=== PATIENT | female | born 1995 | race Caucasian/White ===

== ENCOUNTER 2017-11-25 09:00 | Emergency (ER) | payer BC, OTHER, SELFPAY ==
[2017-11-25 09:21] VITALS: BMI 32.4
[2017-11-25 09:24] VITALS: BP 116/89; PULSE 106; RESP 20; TEMP 36.6; O2SAT 98; BMI 32.4
--- NOTE | 2017-11-25 09:37 | HMH.EDUTC ---
[facility] [place] Impression: Viral upper respiratory illness Disposition: Home, Self-Care Condition on Discharge: Good Instructions: DI for Viral Upper Respiratory Infection -- Adult Additional Instructions: * No sign of bacterial infection. Likely viral. Virus can take 7-14 days to run their course * Nasal Saline and bulb syringe or nose olga to remove nasal drainage and help with nasal congestion. Hard to eat, drink, sleep with nasal congestion so important to keep nose cleaned out * Monitor Temp. Tylenol every 4 hours as needed no more then 5 times a day or 4000mg in 24 hours and/or ibuprofen every 6 hours as needed no more then 3200mg in 24 hours (as long as your primary care doctor has told you that it is ok to take both) for fever/aches/pain. ER if fever no less than 101 despite tylenol and ibuprofen * Encourage fluids, water, gatorade, powerade, pedialyte if /toddler/child * warm salt water gargles * warm fluids * sore throat lozenges * sleep elevated * humidifier/vaporizer * * Your throat swab was sent for culture. Those results are typically sent to your primary care. Be sure to follow up in 2-3 days if no improvement so they can review those results and treat if necessary. If you don't have primary care, I recommend you get one but in the mean time, you will have to return to a walk in clinic. Referrals: Evelio Smith MD [Primary Care Provider] - (IMMEDIATELY for new or worsening symptoms OR no noticeable improvement over the next 48-72 hours. 911 for difficulty breathing or swallowing.) Time of Disposition: 09:41 Medical Decision Making Vital Signs: 11/25/17 09:24 Temperature 97.9 F Temperature Source Oral Pulse Rate [Right Brachial] 106 H Respiratory Rate 20 Blood Pressure [Right Arm] 116/89 Blood Pressure Mean [Right Arm] 98 Blood Pressure Source [Right Arm] Automatic Cuff Blood Pressure Position [Right Arm] Sitting 02 Sat by Pulse Oximetry 98 Oxygen Delivery Method Room Air - Jaspal Inquiry Pt receiving controlled substance: No [facility] [place] - General Stated complaint: congestion Time Seen by Provider: 11/25/17 09:20 Mode of Arrival: Ambulatory Source of Information: Patient Limitations: No Limitations Description of Symptoms (Recalled from Triage Doc. by RN): sneezing, cough, fever x 3 days HEENT Symptoms (Recalled from RN notes): Yes Resp Symptoms (Recalled from RN notes): Yes Skin Symptoms (Recalled from RN notes): No MS Symptoms (Recalled from RN notes): No Functional Status (Recalled from RN notes): na - History of Present Illness Provider Complaint: c/o nonprod cough, aches, chills, rhinorrhea and nasal congestion x 3 days. Son w/ same symptoms but hasn't been seen. Has not had flu vaccine. Denies fever. Tylenol and dayquil/nyquil help. - Related Data Home Medications Medication Instructions Recorded Confirmed No Known Home Medications [No 11/25/17 11/25/17 Known Home Medications] Allergies Allergy/AdvReac Type Severity Reaction Status Date / Time No Known Allergies Allergy Verified 11/25/17 09:22 - Worker's Comp Is this a Worker's Comp case?: No Is this an [facility] Worker's Comp?: No Is this a [place] Worker's Comp?: No [facility] History I have reviewed the patient's past medical history: Yes (denies pertinent hx) Medical History: Denies:: Diabetes Mellitus Type 2, Hypertension Amputation: No Fractures: No Comment: wisdom teeth extraction - *Social History Smoking Status: Never smoker Alcohol Intake: never - Psychiatric History Expresses thoughts of harming self/others: None Suicide Plan Description: No Plan ROS Obtained: Yes Systems reviewed as appropriate & no additional complaints - Constitutional Reports body ache(s), Reports chills, Reports fatigue, Denies anorexia, Denies fever(s) - Eyes Denies discharge - ENT Reports nasal congestion, Reports nasal discharge, Reports post nasal drip, Reports sinus pressure, Denies abnormal
--- NOTE | 2017-11-25 09:40 | ED_ITS ---
[facility] – [place] Disposition Clinical Impression: Viral upper respiratory illness Disposition: Home, Self-Care Condition on Discharge: Good Instructions: DI for Viral Upper Respiratory Infection -- Adult Additional Instructions: * No sign of bacterial infection. Likely viral. Virus can take 7-14 days to run their course * Nasal Saline and bulb syringe or nose olga to remove nasal drainage and help with nasal congestion. Hard to eat, drink, sleep with nasal congestion so important to keep nose cleaned out * Monitor Temp. Tylenol every 4 hours as needed no more then 5 times a day or 4000mg in 24 hours and/or ibuprofen every 6 hours as needed no more then 3200mg in 24 hours (as long as your primary care doctor has told you that it is ok to take both) for fever/aches/pain. ER if fever no less than 101 despite tylenol and ibuprofen * Encourage fluids, water, gatorade, powerade, pedialyte if infant/toddler/ child * warm salt water gargles * warm fluids * sore throat lozenges * sleep elevated * humidifier/vaporizer * * Your throat swab was sent for culture. Those results are typically sent to your primary care. Be sure to follow up in 2-3 days if no improvement so they can review those results and treat if necessary. If you don't have primary care , I recommend you get one but in the mean time, you will have to return to a walk in clinic. Referrals: Evelio Smith MD [Primary Care Provider] - (IMMEDIATELY for new or worsening symptoms OR no noticeable improvement over the next 48-72 hours. 911 for difficulty breathing or swallowing.) Time of Disposition: 09:41 Medical Decision Making Vital Signs: 11/25/17 09:24 Temperature 97.9 F Temperature Source Oral Pulse Rate [Right Brachial] 106 H Respiratory Rate 20 Blood Pressure [Right Arm] 116/89 Blood Pressure Mean [Right Arm] 98 Blood Pressure Source [Right Arm] Automatic Cuff Blood Pressure Position [Right Arm] Sitting 02 Sat by Pulse Oximetry 98 Oxygen Delivery Method Room Air - Jaspal Inquiry Pt receiving controlled substance: No [facility] [place] HPI - General Stated complaint: congestion Time Seen by Provider: 11/25/17 09:20 Mode of Arrival: Ambulatory Source of Information: Patient Limitations: No Limitations Description of Symptoms (Recalled from Triage Doc. by RN): sneezing, cough, fever x 3 days HEENT Symptoms (Recalled from RN notes): Yes Resp Symptoms (Recalled from RN notes): Yes Skin Symptoms (Recalled from RN notes): No MS Symptoms (Recalled from RN notes): No Functional Status (Recalled from RN notes): na - History of Present Illness Provider Complaint: c/o nonprod cough, aches, chills, rhinorrhea and nasal congestion x 3 days. Son w/ same symptoms but hasn't been seen. Has not had flu vaccine. Denies fever. Tylenol and dayquil/nyquil help. - Related Data Home Medications Medication Instructions Recorded Confirmed No Known Home Medications [No 11/25/17 11/25/17 Known Home Medications] Allergies Allergy/AdvReac Type Severity Reaction Status Date / Time No Known Allergies Allergy Verified 11/25/17 09:22 - Worker's Comp Is this a Worker's Comp case?: No Is this an [facility] Worker's Comp?: No Is this a [place] Worker's Comp?: No [facility] History I have reviewed the patient's past medical history: Yes (denies pertinent hx) Medical History: Denies:: Diabetes Mellitus Type 2, Hypertension Amputation: No
[2017-11-25 09:42] LABS: UTC Influenza A Antigen Negative (Negative); UTC Influenza B Antigen Negative (Negative)
[2017-11-25 09:44] LABS: UTC Strep Screen (Rapid) Negative (Negative)
[2017-11-25 09:48] VITALS: BP 118/68
== END 2017-11-25 09:50 | disposition home or self-care (01) ==
PROVIDERS: Emergency Provider Nurse Practitioner Family; Family Provider Family Medicine; PCP Family Medicine
DX: J06.9 Acute upper respiratory infection, unspecified (principal)
CPT/HCPCS: 87275; 87276; 87430; 87804; 87880; 99201

== ENCOUNTER 2018-02-17 12:33 | Emergency (ER) | payer BC, OTHER, SELFPAY ==
[2018-02-17 12:40] VITALS: BP 131/79; PULSE 109; RESP 20; TEMP 36.9; O2SAT 98; BMI 29.9
--- NOTE | 2018-02-17 12:44 | HMH.EDUTC ---
[facility] [place] Clinical Impression: Viral upper respiratory illness Disposition: Home, Self-Care Condition on Discharge: Good Instructions: DI for Viral Upper Respiratory Infection -- Adult Additional Instructions: * No sign of bacterial infection. Likely viral. Virus can take 7-14 days to run their course * Nasal Saline to remove nasal drainage and help with nasal congestion. Hard to eat, drink, sleep with nasal congestion so important to keep nose cleaned out * Monitor Temp. Follow up if fever develops * Encourage fluids, water, gatorade, powerade, pedialyte if infant/toddler/child * warm salt water gargles * warm fluids * sore throat lozenges * sleep elevated * humidifier/vaporizer Referrals: Evelio Smith MD [Primary Care Provider] - (IMMEDIATELY for new or worsening symptoms OR no noticeable improvement over the next 48-72 hours. 911 for difficulty breathing or swallowing.) Time of Disposition: 12:53 Medical Decision Making - Jaspal Inquiry Pt receiving controlled substance: No Vital Signs: 02/17/18 12:40 Temperature 98.4 F Temperature Source Oral Pulse Rate [Right Brachial] 109 H Respiratory Rate 20 Blood Pressure [Right Arm] 131/79 Blood Pressure Mean [Right Arm] 96 Blood Pressure Source [Right Arm] Automatic Cuff Blood Pressure Position [Right Arm] Sitting 02 Sat by Pulse Oximetry 98 Oxygen Delivery Method Room Air [facility] [place]PI - General Stated complaint: congested Time Seen by Provider: 02/17/18 12:45 Mode of Arrival: Family Vehicle Source of Information: Patient Limitations: No Limitations Description of Symptoms (Recalled from Triage Doc. by RN): C/O CONGESTION AND COUGH X 2 DAYS HEENT Symptoms (Recalled from RN notes): Yes Resp Symptoms (Recalled from RN notes): Yes Skin Symptoms (Recalled from RN notes): No MS Symptoms (Recalled from RN notes): No Functional Status (Recalled from RN notes): N/A - History of Present Illness Provider Complaint: c/o nonprod cough, nasal congestion, sore throat since day before yesterday. Son with same symptoms. Dx URI and OM. Hasn't taken or tried anything for symptoms. I don't like to take medication . No fever, aches, chills. Here only because mom is getting chemo. I just want to be sure I don't need antibiotics - Related Data Home Medications Medication Instructions Recorded Confirmed No Known Home Medications [No 11/25/17 02/17/18 Known Home Medications] Allergies Allergy/AdvReac Type Severity Reaction Status Date / Time No Known Allergies Allergy Verified 11/25/17 09:22 - Worker's Comp Is this a Worker's Comp case?: No [facility] History I have reviewed the patient's past medical history: Yes Medical History: Denies:: Diabetes Mellitus Type 1, Diabetes Mellitus Type 2, Hypertension Other Surgeries: Yes: Other (wisdom teeth extraction) Amputation: No Fractures: No Comment: wisdom teeth extraction - Social History Smoking Status: Never smoker Alcohol Intake: never - Psychiatric History Expresses thoughts of harming self/others: None Suicide Plan Description: No Plan ROS Obtained: Yes Systems reviewed as appropriate & no additional complaints - Constitutional Constitutional: Reports as per HPI, Denies difficulty sleeping, Denies fatigue, Denies poor appetite - Eyes Eyes: Denies eye discharge, Denies itchy eyes - ENT Ears, Nose, Mouth, and Throat: Denies difficulty swallowing, Denies ear discharge, Reports otalgia (popping), Reports nasal congestion, Reports nasal discharge, Denies pain with swallowing, Reports post nasal drip, Denies sinus pain, Reports sore throat, Denies throat swelling - Cardiovascular Cardiovascular: Denies chest pain, Denies irregular heart rhythm - Respiratory Respiratory: No chest congestion, Yes non-productive cough, No dyspnea, No wheezing - Gastrointestinal Gastrointestingal: Denies: diarrhea, vomiting - Integumentary/Breasts Skin/Breast: Denies rash - Neurologic Neurologic:
--- NOTE | 2018-02-17 12:51 | ED_ITS ---
[facility] – [place] Disposition Clinical Impression: Viral upper respiratory illness Disposition: Home, Self-Care Condition on Discharge: Good Instructions: DI for Viral Upper Respiratory Infection -- Adult Additional Instructions: * No sign of bacterial infection. Likely viral. Virus can take 7-14 days to run their course * Nasal Saline to remove nasal drainage and help with nasal congestion. Hard to eat, drink, sleep with nasal congestion so important to keep nose cleaned out * Monitor Temp. Follow up if fever develops * Encourage fluids, water, gatorade, powerade, pedialyte if infant/toddler/ child * warm salt water gargles * warm fluids * sore throat lozenges * sleep elevated * humidifier/vaporizer Referrals: Evelio Smith MD [Primary Care Provider] - (IMMEDIATELY for new or worsening symptoms OR no noticeable improvement over the next 48-72 hours. 911 for difficulty breathing or swallowing.) Time of Disposition: 12:53 Medical Decision Making - Jaspal Inquiry Pt receiving controlled substance: No Vital Signs: 02/17/18 12:40 Temperature 98.4 F Temperature Source Oral Pulse Rate [Right Brachial] 109 H Respiratory Rate 20 Blood Pressure [Right Arm] 131/79 Blood Pressure Mean [Right Arm] 96 Blood Pressure Source [Right Arm] Automatic Cuff Blood Pressure Position [Right Arm] Sitting 02 Sat by Pulse Oximetry 98 Oxygen Delivery Method Room Air [facility] [place] HPI - General Stated complaint: congested Time Seen by Provider: 02/17/18 12:45 Mode of Arrival: Family Vehicle Source of Information: Patient Limitations: No Limitations Description of Symptoms (Recalled from Triage Doc. by RN): C/O CONGESTION AND COUGH X 2 DAYS HEENT Symptoms (Recalled from RN notes): Yes Resp Symptoms (Recalled from RN notes): Yes Skin Symptoms (Recalled from RN notes): No MS Symptoms (Recalled from RN notes): No Functional Status (Recalled from RN notes): N/A - History of Present Illness Provider Complaint: c/o nonprod cough, nasal congestion, sore throat since day before yesterday. Son with same symptoms. Dx URI and OM. Hasn't taken or tried anything for symptoms. I don't like to take medication . No fever, aches, chills. Here only because mom is getting chemo. I just want to be sure I don't need antibiotics - Related Data Home Medications Medication Instructions Recorded Confirmed No Known Home Medications [No 11/25/17 02/17/18 Known Home Medications] Allergies Allergy/AdvReac Type Severity Reaction Status Date / Time No Known Allergies Allergy Verified 11/25/17 09:22 - Worker's Comp Is this a Worker's Comp case?: No [facility] History I have reviewed the patient's past medical history: Yes Medical History: Denies:: Diabetes Mellitus Type 1, Diabetes Mellitus Type 2, Hypertension Other Surgeries: Yes: Other (wisdom teeth extraction) Amputation: No Fractures: No Comment: wisdom teeth extraction - Social History Smoking Status: Never smoker Alcohol Intake: never - Psychiatric History Expresses thoughts of harming self/others: None Suicide Plan Description: No Plan ROS Obtained: Yes Systems reviewed as appropriate & no additional complaints - Constitutional Constitutional: Reports as per HPI, Denies difficulty sleeping, Denies fatigue, Denies poor appetite - Eyes Eyes: Denies eye discharge, Denies itchy eyes - ENT Ears,
[2018-02-17 13:02] VITALS: BP 130/72; PULSE 105; RESP 20; TEMP 36.9; O2SAT 99
== END 2018-02-17 13:02 | disposition home or self-care (01) ==
PROVIDERS: Emergency Provider Nurse Practitioner Family; Family Provider Family Medicine; PCP Family Medicine
DX: J06.9 Acute upper respiratory infection, unspecified (principal)
CPT/HCPCS: 99201

== ENCOUNTER → 2018-09-26 14:41 | Outpatient (CLI) | payer OTHER, SELFPAY ==
--- NOTE | 2018-09-26 14:42 | US_ITS ---
US transvaginal HISTORY: Pelvic pain, abnormal cycles ITS.REASON: US T/V- Pelvic Pain ORDERING PHYSICIAN: Liu Rod MD PATIENT AGE: 23 years Comparison: None FINDINGS: Uterus is anteverted measuring 6 x 3.4 x 4.3 cm with a combined endometrial thickness of 4 mm. No uterine mass. The right ovary is 2.8 x 2.8 cm with small follicles. Blood flow is present. The left ovary is 2.3 x 1.6 cm with small follicles. Blood flow is present. No dominant cyst evident. No cul-de-sac fluid. IMPRESSION: Unremarkable pelvic ultrasound
== END ==
PROVIDERS: PCP Family Medicine; Visit Provider Nurse Practitioner Obstetrics & Gynecology
DX: R10.2 Pelvic and perineal pain (principal)
CPT/HCPCS: 76830

== ENCOUNTER → 2019-09-04 13:08 | Outpatient (CLI) | payer OTHER, SELFPAY ==
--- NOTE | 2019-09-04 13:10 | US_ITS ---
PROCEDURE: US OB TRANSVAGINAL CLINICAL INDICATION: US OB Dates COMPARISON: TRANVAG US transvaginal from 09/26/2018 FINDINGS: An intrauterine gestational sac is present with a pole with a crown-rump length of 17.7 mm correlating to gestational age of 8 weeks 2 days. heart tones are present with an FHR of 161 bpm. Yolk sac is noted. Adnexa is unremarkable. IMPRESSION: Live intrauterine gestation in 8 weeks 2 days Estimated due date by Ultrasound is 04/13/2020 Dictated by: Jim Woodall MD 09/04/2019 15:52 Electronically signed by Jim Woodall MD in [place] 09/04/2019 15:52
[2019-09-04 14:48] LABS: Basophils % 0.3 % (0.1-2.0); Eosinophils # 0.2 K/mm3 (0.0-0.4); Eosinophils % 1.4 % (0.1-12.0); Hematocrit 44.6 % (37.0-47.0); Hemoglobin 14.2 g/dL (12.2-16.2); Lymphocytes # 2.2 K/mm3 (0.7-4.5); Lymphocytes % 17.7 % (10-50); Mean Corpuscular HGB Conc 31.8 g/dL (31.8-35.4); Mean Corpuscular Hemoglobin 28.7 pg (27.0-31.2); Mean Corpuscular Volume 90.3 fl (81-99); Mean Platelet Volume 7.3 fl (7.4-10.4); Monocytes # 0.5 K/mm3 (0.1-1.0); Monocytes % 3.7 % (1.7-9.3); Neutrophils # 9.7 K/mm3 (1.8-7.8); Neutrophils % 76.8 % (37.0-80.0); Platelet Count 270 K/mm3 (142-424); Red Blood Count 4.94 M/mm3 (4.20-5.40); Red Cell Distribution Width 13.1 % (11.5-17.5); White Blood Count 12.7 K/mm3 (4.8-10.8)
[2019-09-07 07:22] LABS: Hepatitis B Surface Antigen Negative (Negative); Hepatitis C Antibody 0.1 s/co ratio (0.0-0.9); Rapid Plasma Reagin Ab Titer Non Reactive (NonRea<1:1)
[2019-09-07 07:23] LABS: HIV Screen 4th Generation wRfx Non Reactive (Non Reactive)
[2019-09-07 14:30] LABS: Rubella Antibodies, IgG 1.16 index (Immune >0.99)
== END ==
PROVIDERS: PCP Family Medicine; Visit Provider Nurse Practitioner Obstetrics & Gynecology
DX: O26.841 Uterine size-date discrepancy, first trimester (principal)
CPT/HCPCS: 36415; 76817; 85025; 86592; 86703; 86762; 86850; 87340; 87380; G0432

== ENCOUNTER → 2019-09-04 13:46 | Outpatient (CLI) | payer OTHER, SELFPAY | PROVIDERS: Visit Provider Nurse Practitioner Obstetrics & Gynecology | DX: Z34.90 Encounter for supervision of normal pregnancy, unspecified, unspecified trimester (principal) | CPT/HCPCS: 36415; 85025; 86592; 86703; 86762; 86850; 87340; 87380; G0432 ==

== ENCOUNTER → 2019-11-24 12:34 | Outpatient (CLI) | payer OTHER, SELFPAY ==
--- NOTE | 2019-11-24 12:34 | US_ITS ---
PROCEDURE: US OB /MATERNAL DETAIL CLINICAL INDICATION: US OB Complete Anatomy exam COMPARISON: US OB TRANSVAGINAL from 09/04/2019 FINDINGS: Single viable intrauterine gestation. Transverse position. Placenta: Posteriorplacenta grade 1. There is average amount fluid. The cervix appears satisfactory. Closed and measuring 4 cm in length. Complete survey performed and was unremarkable on the submitted images as in PACS. No discrete anomalies identified on survey imaging by technologist. Active fetus. Two vessel cord with satisfactory umbilical cord insertion. 4- chamber heart noted. Survey of brain & ventricles Unremarkable. Face and neck survey unremarkable. Diaphragm and chest views unremarkable. Abdomen: Both kidneys noted and unremarkable. Stomach noted and satisfactory. Spine: Survey of the spine satisfactory with no anomalies identified nor imaged. Both arms and legs noted. Amniotic Fluid: Adequate. Maternal adnexa: No significant findings. Measurements: Average ultrasound age 19weeks 5days. Gestational Age 19 weeks 6 days Estimated due date by ultrasound age 0504/14/2020. Estimated weight 316g BPD = 19weeks 6days OFD = 19 weeks 6 days HC = 19weeks 1day AC = 20weeks FL = 19weeks 6days Growth Percentile= 44 percent% Heart Rate = 144bpm Cerebellum = 19weeks 6days Humerus = HC/AC is 1.11 CI is 0.79 FL/BPD is 0.7 FL/AC is 0.22 IMPRESSION: There is a single live fetus present with an average ultrasound age of 19 weeks 5 days. There is a single umbilical artery with 2 vessel cord. No other abnormalities are evident. All parameters correlate. Please see above for detail. Dictated by: Jim Woodall MD 11/24/2019 15:46 Electronically signed by Jim Woodall MD in [place] 11/24/2019 15:46
== END ==
PROVIDERS: PCP Family Medicine; Visit Provider Nurse Practitioner Obstetrics & Gynecology
DX: Z36.0 Encounter for antenatal screening for chromosomal anomalies (principal)
CPT/HCPCS: 76811

== ENCOUNTER → 2020-02-23 14:02 | Outpatient (CLI) | payer OTHER, SELFPAY ==
--- NOTE | 2020-02-23 14:02 | US_ITS ---
PROCEDURE: US OB BIOPHYSICAL PROFILE CLINICAL INDICATION: 2 vessel cord TECHNIQUE: FINDINGS: The following parameters are obtained: Average ultrasound age is Average 32weeks 2days Estimated due date by ultrasound is 04/17/2020. Estimated weight is 1,984g. This is 29th percentile. Cervix is closed and measures 3.9 cm. The placenta is posterior and high and grade 2. Two vessel cord once again noted. BPD: 31 weeks 4 days OFD: 31 weeks 4 days HC: 31 weeks 3 days AC: 32 weeks 6 FL: 32 weeks 6 days heart rate: 155bpm bpm. HC/AC: 0.99 Cephalic index: 0.77 FL/BPD: 0.81 FL/AC: 0.22 Amniotic fluid index: 12.14cm Qualitative AFV: 2 breathing movements: 2 Gross body movements: 2 Tone: 2 Biophysical profile score: 8 IMPRESSION: There is a single live fetus in cephalic presentation. Average ultrasound age is 32 weeks 2 days. Estimated weight is 1984 g which is 29th percentile Biophysical profile is 8 of 8 with normal amniotic fluid volume of 12 cm. Placenta is posterior and in implantation. There is a 2 vessel cord. Dictated by: Jim Woodall MD 02/23/2020 15:34 Electronically signed by Jim Woodall MD in [place] 02/23/2020 15:34
== END ==
PROVIDERS: PCP Family Medicine; Visit Provider Nurse Practitioner Obstetrics & Gynecology
DX: Z36.0 Encounter for antenatal screening for chromosomal anomalies (principal)
CPT/HCPCS: 76816; 76819

== ENCOUNTER → 2020-03-22 10:16 | Outpatient (CLI) | payer OTHER, SELFPAY ==
[2020-03-22 11:08] LABS: Basophils # 0.1 K/mm3 (0-0.2); Basophils % 0.4 % (0.1-2.0); Eosinophils # 0.2 K/mm3 (0.0-0.4); Eosinophils % 1.4 % (0.1-12.0); Hematocrit 33.2 % (37.0-47.0); Lymphocytes # 2.3 K/mm3 (0.7-4.5); Lymphocytes % 17.9 % (10-50); Mean Corpuscular HGB Conc 33.2 g/dL (31.8-35.4); Mean Corpuscular Hemoglobin 26.9 pg (27.0-31.2); Mean Platelet Volume 7.8 fl (7.4-10.4); Monocytes # 0.8 K/mm3 (0.1-1.0); Monocytes % 5.8 % (1.7-9.3); Neutrophils # 9.6 K/mm3 (1.8-7.8); Neutrophils % 74.6 % (37.0-80.0); Platelet Count 226 K/mm3 (142-424); Red Cell Distribution Width 14.5 % (11.5-17.5); White Blood Count 12.9 K/mm3 (4.8-10.8)
[2020-03-22 11:29] LABS: Chloride 104 mmol/L (98-107); Sodium 135 mmol/L (136-145)
[2020-03-22 11:30] LABS: Potassium 3.9 mmoL/L (3.5-5.1)
[2020-03-22 11:32] LABS: Alanine Aminotransferase 14 U/L (12-78); Albumin Level 3.5 g/dl (3.5-5.0); Albumin/Globulin Ratio 1.1 (1.1-1.8); Alkaline Phosphatase 200 U/L (38-126); Anion Gap 15.9 mEq/L (5-15); Aspartate Amino Transferase 18 U/L (14-36); Bilirubin,Total 0.3 mg/dl (0.2-1.3); Blood Urea Nitrogen 9 mg/dl (7-17); Carbon Dioxide 19 mmol/L (22.0-30.0); Estimated Glomerular Filt Rate 196 ml/min (>60); GFR (African American) 237 ML/MIN (>60); Globulin 3.2 g/dL (1.3-3.2); Total Protein,Serum 6.7 g/dl (6.3-8.2); Uric Acid 3.1 mg/dl (2.5-6.2)
[2020-03-22 11:33] LABS: Calcium 9.7 mg/dl (8.4-10.2); Glucose 126 mg/dl (74-100)
== END ==
PROVIDERS: Visit Provider Nurse Practitioner Obstetrics & Gynecology
DX: O13.9 Gestational [pregnancy-induced] hypertension without significant proteinuria, unspecified trimester (principal)
CPT/HCPCS: 36415; 80053; 84550; 85025; 86403

== ENCOUNTER 2020-04-04 01:37 | Outpatient (CLI) | payer OTHER, SELFPAY ==
[2020-04-04 01:42] VITALS: BMI 39.0
[2020-04-04 01:52] LABS: Microscopic, Urine URINE MICROSCOPIC (MICROSCOPIC)
[2020-04-04 02:00] LABS: Appearance,Urine SL CLOUDY (Clear); Bilirubin,Urine Negative (Negative); Blood, Urine Negative (Negative); Color,Urine YELLOW (Yellow); Glucose,Urine (UA) TRACE (Negative); Ketones,Urine Negative (Negative); Leukocyte Esterase,Urine Negative (Negative); Nitrate,Urine Negative (Negative); Protein,Urine TRACE (Negative); Specific Gravity, Urine >= 1.030 (1.005-1.030); Urobilinogen,Urine 0.2 EU/dl (0.2)
[2020-04-04 02:10] LABS: Squamous Epithelial Cell,Urine 20-50 #/hpf (0-5); WBC,Urine Occasional #/hpf (0-3)
[2020-04-04 02:11] VITALS: BP 163/79; PULSE 109; RESP 22; TEMP 37.1; BMI 39.0
[2020-04-04 02:11] LABS: Barbiturates Screen,Urine Negative ng/ml (<200)
[2020-04-04 02:12] LABS: Amphetamine/Metha Screen,Urine Negative ng/ml (<1000); Benzodiazepines Screen,Urine Negative ng/ml (<200)
[2020-04-04 02:20] LABS: Cannabinoid Screen,Urine Negative ng/ml (<50)
[2020-04-04 02:21] LABS: Cocaine Screen,Urine Negative ng/ml (<300)
[2020-04-04 02:22] LABS: Methadone Screen,Urine Negative ng/ml (<300)
[2020-04-04 02:24] LABS: Opiate Screen,Urine Negative ng/ml (<300)
[2020-04-04 02:25] LABS: Phencyclidine Screen,Urine Negative ng/ml (<25)
== END 2020-04-04 03:11 | disposition home or self-care (01) ==
LOC: OBOUT 01:40 → OB 01:40
PROVIDERS: PCP Family Medicine; Visit Provider Obstetrics & Gynecology
DX: O26.893 Other specified pregnancy related conditions, third trimester (principal); Z3A.38 38 weeks gestation of pregnancy; R10.31 Right lower quadrant pain
CPT/HCPCS: 59025; 80305; 81001; G0463

== ENCOUNTER 2020-04-13 05:01 | Inpatient (IN) | payer OTHER, SELFPAY ==
[2020-04-13 05:26] VITALS: BP 144/73; PULSE 110; RESP 18; TEMP 36.6; O2SAT 96
[2020-04-13 05:47] VITALS: BP 144/73; PULSE 110; RESP 18; TEMP 36.6; O2SAT 96
[2020-04-13 06:16] LABS: Microscopic, Urine URINE MICROSCOPIC (MICROSCOPIC)
[2020-04-13 06:20] LABS: Appearance,Urine CLOUDY (Clear); Bilirubin,Urine Negative (Negative); Blood, Urine Negative (Negative); Color,Urine DK YELLOW (Yellow); Glucose,Urine (UA) Negative (Negative); Ketones,Urine TRACE (Negative); Leukocyte Esterase,Urine 1+ (Negative); Nitrate,Urine Negative (Negative); Protein,Urine TRACE (Negative); Specific Gravity, Urine >= 1.030 (1.005-1.030); Urobilinogen,Urine 0.2 EU/dl (0.2)
[2020-04-13 06:20] LABS: Basophils % 0.3 % (0.1-2.0); Eosinophils # 0.2 K/mm3 (0.0-0.4); Eosinophils % 1.3 % (0.1-12.0); Hematocrit 35.5 % (37.0-47.0); Hemoglobin 11.7 g/dL (12.2-16.2); Lymphocytes # 2.9 K/mm3 (0.7-4.5); Lymphocytes % 19.6 % (10-50); Mean Corpuscular HGB Conc 33.1 g/dL (31.8-35.4); Mean Corpuscular Hemoglobin 27.9 pg (27.0-31.2); Mean Corpuscular Volume 84.3 fl (81-99); Mean Platelet Volume 7.8 fl (7.4-10.4); Monocytes # 0.8 K/mm3 (0.1-1.0); Monocytes % 5.7 % (1.7-9.3); Neutrophils # 10.7 K/mm3 (1.8-7.8); Neutrophils % 73.1 % (37.0-80.0); Platelet Count 216 K/mm3 (142-424); Red Blood Count 4.21 M/mm3 (4.20-5.40); Red Cell Distribution Width 17.3 % (11.5-17.5); White Blood Count 14.6 K/mm3 (4.8-10.8)
[2020-04-13 06:33] LABS: Barbiturates Screen,Urine Negative ng/ml (<200); Benzodiazepines Screen,Urine Negative ng/ml (<200)
[2020-04-13 06:34] LABS: Amphetamine/Metha Screen,Urine Negative ng/ml (<1000); Cannabinoid Screen,Urine Negative ng/ml (<50)
[2020-04-13 06:35] LABS: Cocaine Screen,Urine Negative ng/ml (<300)
[2020-04-13 06:36] LABS: Methadone Screen,Urine Negative ng/ml (<300); Opiate Screen,Urine Negative ng/ml (<300)
[2020-04-13 06:37] LABS: Phencyclidine Screen,Urine Negative ng/ml (<25)
[2020-04-13 06:43] LABS: Bacteria,Urine 2+ /lpf; Squamous Epithelial Cell,Urine 20-50 #/hpf (0-5); WBC,Urine 20-50 #/hpf (0-3)
[2020-04-13 06:53] LABS: Coronavirus 19 IgG Antibody Negative (Negative); Coronavirus 19 IgM Antibody Negative (Negative)
[2020-04-13 07:12] VITALS: BP 143/79; PULSE 90; RESP 18; TEMP 36.7; O2SAT 98
--- NOTE | 2020-04-13 08:52 | HMH.LABNOT ---
Labor Note - Subjective: Date: 04/13/20 Time: 08:52 regular contraction - Objective: NST:: Reactive Contractions:: every 2-3 minutes Cervical Dilation:: 4 Effacement:: 75% Station: -2 Membranes: artificially ruptured - Fetus: Monitoring?: Yes monitoring type:: Internal Comment:: I inserted a scalp clip and IUPC - Assessment: Labor progressing?: Yes Cephalopelvic disproportion?: No Patient Problems: All Active Problems (Acute) - Plan: Anesthesia for epidural?: Yes Continue to labor down?: Yes Plan for ?: No Continue to monitor?: Yes Start pushing?: No
--- NOTE | 2020-04-13 08:56 | HMH.OBAPHP ---
OB - H&P: HPI Antepartum - History of Present Illness Chief complaint: Term History of present illness: She is a 24-year-old 2 para 1 at 39 and 4 weeks gestational age. She has felt lots of pressure and as result of that we elected to induce her labor at term. She had a previous baby that was almost 8 pounds. She also had some episodes of increased blood pressure. She has been on prophylactic aspirin throughout the . - History of Present Criteria for establishing EDC:: LMP confirmed by 1st trimester US care: good care Ultrasounds: normal 1st trimester US, normal mid trimester US Obstetrical complications: none, gestational hypertension Medical complications: other Narrative: She is morbidly obese - Labs Blood type: O (+) positive Rubella: immune RPR/VDRL: nonreactive GBS status: negative HBsAG: negative [facility] History I have reviewed the patient's past medical history: Yes Medical History: Reports:: Anxiety Denies:: Cancer, Diabetes Mellitus Type 1, Diabetes Mellitus Type 2, Hypertension, MRSA *Have you ever received a pneumonia vaccine?: No *Have you received a flu vaccine this season?: No Laterality Cases: Bilateral: Myringotomy (Ear Tubes) Other Surgeries: Yes: No Previous Surgery, Other. No: Amputation: No Fractures: No - *Social History Smoking Status: Former smoker Tobacco Type: cigarettes # Packs/Day (cigarettes): 1 Alcohol Intake: never Substance Use Type: marijuana *Occupational Status:: unemployed Housing: house Household Members: family *Travel in the last 8 weeks: None - Psychiatric History Pschychiatric History:: Reports:: Anxiety Family Hx:: Cancer Para: 1 Review of Systems - Review of Systems Review of systems:: pertinent systems reviewed and negative unless documented below Meds Home Medications Medication Instructions Recorded Confirmed Type PNV 153-FA 400 mcg-om3 35 mg-dha 1 tab PO DAILY tab 08/25/19 04/13/20 History 25 mg-epa 5 mg-fish oil chew tablet Ferrous Sulfate 325 mg PO DAILY 04/13/20 04/13/20 History Allergies Allergy/AdvReac Type Severity Reaction Status Date / Time No Known Allergies Allergy Verified 04/13/20 06:46 OB - H&P: Exam - Physical Exam Vital signs: Temp Pulse Resp BP Pulse Ox 98.0 F 90 18 143/79 H 98 04/13/20 07:12 04/13/20 07:12 04/13/20 07:12 04/13/20 07:12 04/13/20 07:12 - Constitutional no acute distress - Routine HEENT Exam Head: Present: normocephalic Eye: Present: EOMI, PERRL ENT: Present: mucous membranes moist - Routine Neck Exam Present: supple, full ROM - Routine Respiratory Exam Absent: accessory muscle use (good air entry bilaterally), respiratory distress, wheezes, crackles - Routine Cardiovascular Exam Present: RRR. Absent: murmur - Routine Abdominal Exam Present: soft, normoactive bowel sounds. Absent: tenderness, distended, guarding - Routine Rectal Exam Patient deferred: visual exam, digital exam - Routine Exam Patient deferred: external exam, groin exam, perineal exam - Routine Extremities Exam Present: full ROM. Absent: cyanosis, edema - Routine Skin Exam Present: intact. Absent: cyanosis - Routine Neurological Exam Present: alert, oriented X3 - Routine Psychiatric Exam Present: normal affect OB - Results - Labs Labs: Short CBC 04/13/20 Range/Units 05:35 WBC 14.6 H (4.8-10.8) K/mm3 Hgb 11.7 L (12.2-16.2) g/dL Hct 35.5 L (37.0-47.0) % Plt Count 216 (142-424) K/mm3 Urine 04/13/20 Range/Units 05:15 Urine Color Dk yellow (Yellow) Urine Appearance Cloudy (Clear) Urine pH 6.0 (5.0-8.5) Ur Specific [place] >= 1.030 (1.005-1.030) Urine Protein Trace (Negative) Urine Glucose (UA) Negative (Negative) OB - A/P Antepartum (1) Gestational hypertension Current visit: Yes Status: Acute (2) Maternal obesity affecting , ant
--- NOTE | 2020-04-13 10:55 | HMH.LABNOT ---
Labor Note - Subjective: Date: 04/13/20 Time: 10:55 regular contraction - Objective: NST:: Reactive Contractions:: every 2-3 minutes Cervical Dilation:: 5 Effacement:: 100% Station: 0 Membranes: artificially ruptured - Fetus: Monitoring?: Yes monitoring type:: Internal - Assessment: Labor progressing?: Yes Cephalopelvic disproportion?: No Patient Problems: All Active Problems Gestational hypertension (Acute) Maternal obesity affecting , antepartum (Acute) Normal delivery (Acute) (Acute) - Plan: Anesthesia for epidural?: Yes Continue to labor down?: Yes Plan for ?: No Continue to monitor?: Yes Start pushing?: No Comment:: She continues to do well. Her nonstress test is reactive. She is now 5 cm.
[2020-04-13 11:54] VITALS: BP 121/57; PULSE 82; RESP 18; TEMP 36.9
--- NOTE | 2020-04-13 13:36 | HMH.LABNOT ---
Labor Note - Subjective: Date: 04/13/20 Time: 13:36 regular contraction - Objective: NST:: Reactive Contractions:: every 2-3 minutes Cervical Dilation:: 9-10 Effacement:: 100% Station: +1 Membranes: artificially ruptured - Fetus: Monitoring?: Yes monitoring type:: Internal - Assessment: Labor progressing?: Yes Cephalopelvic disproportion?: No Patient Problems: All Active Problems Gestational hypertension (Acute) Maternal obesity affecting , antepartum (Acute) Normal delivery (Acute) (Acute) - Plan: Anesthesia for epidural?: Yes Continue to labor down?: Yes Plan for ?: No Continue to monitor?: Yes Start pushing?: No Comment:: She is doing well and is now fully dilated. The head is still somewhat high. We will allow the head to come down a little more before we start pushing.
[2020-04-13 15:00] LABS: Cord Blood PH 7.16 (7.35-7.45)
[2020-04-13 16:30] VITALS: BP 124/63; PULSE 87; RESP 20; TEMP 36.6
--- NOTE | 2020-04-13 16:37 | P.PCN_ITS ---
- Delivery Note Delivery Date:: 04/13/20 Delivery Time:: 14:26 Anesthesia Type: Epidural Was labor medically induced?: Yes Induction method: per pitocin protocol Gestational age (weeks): 39 Infant delivered prior to 39 weeks?: No Justification for early elective delivery:: Benign Hypertension Gender: Male at 1 minute: 3 at 5 minutes: 9 Delivery Procedure:: She is a 24-year-old 2 para 1 who was 39 weeks gestational age. She has had some benign hypertension and maternal obesity. As result of that we elected to induce her labor at term. She was started on IV oxytocin and progressed to full dilation. She delivered spontaneously a liveborn male child at 2:26 PM on the afternoon of April 13, 2020. On deliver the head it was noted that the shoulders were large and as a result of that I put her in Demetria and applied pressure to her hips. I did not use excessive force on the head and had the nurse apply suprapubic pressure. It took about 1 minute to deliver the baby's anterior shoulder followed by the rest of his body atraumatically. On deliver the head it was noted that there was a loose nuchal cord which was easily reduced. After delivering the baby the cord was doubly clamped and cut and the infant was handed off to the nurses who assigned Apgars of 3 at 1 minute and 9 at 5 minutes. The baby weighed 8 pounds 9 ounces. The baby required positive pressure ventilation but recovered quite quickly. On examination of the baby it seemed that both arms were moving well. I then obtained cord blood as well as cord pH. The patient received IV oxytocin using gentle traction on the cord and countertraction on the fundus I was able to easily deliver the placenta intact. Had a normal three-vessel cord. She has second-degree perineal laceration that was repaired in the usual fashion with 3- 0 Vicryl Rapide suture to the superficial tissues and 2-0 Vicryl suture to the deep tissues of the perineum. She has O Rh+ blood, she is rubella immune and was group B streptococcus negative. Her assistant professor nurse education is Dr. Smith. Estimated blood loss was approximately 300 cc. Laceration:: vaginal Placental Delivery Description: Spontaneous
--- NOTE | 2020-04-13 17:02 | P.PN_ITS ---
Internal Medicine - PN: Gloria *Date: 04/13/20 *Time: 17:02 Interval history: She was having some increased ooze and did receive 1 dose of Methergine. She has been receiving IV oxytocin. Exam Vital signs and Labs for Last 24 Hours: Temp Pulse Resp BP Pulse Ox 98.4 F 82 18 121/57 L 98 04/13/20 11:54 04/13/20 11:54 04/13/20 11:54 04/13/20 11:54 04/13/20 07:12 Laboratory Results - last 24 hr 04/13/20 05:15: Urine Color Dk yellow, Urine Appearance Cloudy, Urine pH 6.0, Ur Specific Harriman >= 1.030, Urine Protein Trace, Urine Glucose (UA) Negative, Urine Ketones Trace, Urine Blood Negative, Urine Nitrate Negative, Urine Bilirubin Negative, Urine Urobilinogen 0.2, Ur Leukocyte Esterase 1+ A, Urine RBC 5-10, Urine WBC 20-50, Ur Squamous Epith Cells 20-50, Urine Bacteria 2+ 04/13/20 05:15: Urine Opiates Screen Negative, Urine Methadone Screen Negative, Ur Barbituates Screen Negative, Ur Phencyclidine Scrn Negative, Ur Amphetamines Screen Negative, U Benzodiazepines Scrn Negative, Urine Cocaine Screen Negative, U Marijuana (THC) Screen Negative 04/13/20 05:35: WBC 14.6 H, RBC 4.21, Hgb 11.7 L, Hct 35.5 L, MCV 84.3, MCH 27.9, MCHC 33.1, RDW 17.3, Plt Count 216, MPV 7.8, Neut % (Auto) 73.1, Lymph % (Auto) 19.6, Lipscomb % (Auto) 5.7, Eos % (Auto) 1.3, Baso % (Auto) 0.3, Neut # (Auto) 10.7 H, Lymph # (Auto) 2.9, Lipscomb # (Auto) 0.8, Eos # (Auto) 0.2, Baso # (Auto) 0.0 04/13/20 05:35: Blood Type O Positive, Antibody Screen Negative 04/13/20 05:35: SARS-CoV-2 IgG Ab (Rapid) Negative, SARS-CoV-2 IgM Ab (Rapid) Negative 04/13/20 14:57: Cord ABG pH 7.16 L* I & O for Last 24 hours: Intake & Output 04/11/20 04/12/20 04/13/20 04/14/20 11:59 11:59 11:59 11:59 Weight 243 lb - Constitutional no acute distress Assessment and Plan (1) Gestational hypertension Current visit: Yes Status: Acute Category: Medical Code(s): O13.9 - Gestational [-induced] hypertension without significant proteinuria, unspecified trimester (2) Maternal obesity affecting , antepartum Current visit: Yes Status: Acute Category: Medical Code(s): O99.210 - Obesity complicating , unspecified trimester (3) Normal delivery Current visit: Yes Status: Acute Category: Medical Code(s): O80 - Encounter for full-term uncomplicated delivery (4) hemorrhage Current visit: Yes Status: Acute Category: Medical Code(s): O72.1 - Other immediate hemorrhage - Assessment and plan all Dx Assessment and Plan for all problems:: She had increased bleeding and had lost about 300 cc since delivery. I examined her and the uterus was full of clots. I retrieved about 750 cc of clots. These were weighed. After removing the clots from the uterus the uterus was firm and there were no other clots within the uterus. We will give her another dose of Methergine at the 6-hour viviana and we will continue with the IV oxytocin overnight. We will get an H&H right now and there is another one ordered for the morning. We will continue to monitor her blood loss closely.
[2020-04-13 18:25] LABS: Hematocrit 32.3 % (37.0-47.0); Hemoglobin 10.6 g/dL (12.2-16.2)
[2020-04-13 20:00] VITALS: BP 122/63; PULSE 99; RESP 18; TEMP 36.8; O2SAT 97
[2020-04-14 00:15] VITALS: BP 134/69; PULSE 97; RESP 18; TEMP 36.8
[2020-04-14 05:18] LABS: Hematocrit 29.8 % (37.0-47.0); Hemoglobin 9.7 g/dL (12.2-16.2)
[2020-04-14 08:00] VITALS: BP 134/75; PULSE 113; RESP 18; TEMP 36.8; O2SAT 96
[2020-04-14 12:00] VITALS: BP 134/62; PULSE 93; RESP 18; TEMP 37.1; O2SAT 98
[2020-04-14 16:00] VITALS: BP 131/62; PULSE 94; RESP 18; TEMP 36.6; O2SAT 98
[2020-04-14 20:00] VITALS: BP 126/67; PULSE 100; RESP 18; TEMP 36.8
--- NOTE | 2020-04-15 09:04 | P.DS_ITS ---
General - General Admission date:: 04/13/20 Discharge date: 04/15/20 HPI HPI: She is a 24-year-old 3 para 2 who was 39 weeks gestational age. She had some slight increase in her blood pressure and as result of that we elected to induce her at term. Hospital Course Hospital Course: She was started on IV oxytocin had her membranes ruptured. Under labor epidural she progressed to full dilation and delivered spontaneously a liveborn male child at 2:26 PM in the afternoon of April 13, 2020. She had mild shoulder dystocia and as result of that Demetria as well as suprapubic pressure was used to dislodge the anterior shoulder. This allowed the baby to deliver easily. Subsequently the baby has had an x-ray that shows that has a fractured right clavicle. We are just binding the baby shoulder at this point in time and the baby will follow up with the train attendant. The baby had Apgars of 3 at 1 minute and 9 at 5 minutes. pH was 7.16. Shortly after delivery she had some excessive bleeding and I needed to clear out approximately 750 cc of clots from the uterus. She received Methergine and IV oxytocin and has done well now. She has done well and has remained afebrile with that her hospitalization. She is eating and drinking and ambulating. She is bottlefeeding. She has O Rh+ blood, she is rubella immune and was group B streptococcus negative. Her train attendant is Dr. Garcia. Her condition on discharge is stable and improved. Rhogam Administration: Not Indicated Objective Vital signs: Temp Pulse Resp BP Pulse Ox 98.2 F 100 H 18 126/67 98 04/14/20 20:00 04/14/20 20:00 04/14/20 20:00 04/14/20 20:00 04/14/20 16:00 no acute distress - *Routine HEENT Exam Head: Present: normocephalic Eye: Present: EOMI, PERRL ENT: Present: mucous membranes moist DS: Diagnosis - Discharge Diagnosis (1) Gestational hypertension Status: Acute (2) Maternal obesity affecting , antepartum Status: Acute (3) Normal delivery Status: Acute (4) hemorrhage Status: Acute (5) Shoulder dystocia during labor and delivery Status: Acute Discharge Plan - Patient Discharge Instructions ACTIVITY: No heavy lifting DIET: continue same diet Additional Instructions: NOTHING IN THE VAGINA FOR 6 WEEKS, NO HEAVY LIFTING OR STRENUOUS ACTIVITY. Patient Instructions: Depression, Hemorrhage, DI for Labor and Delivery, Vaginal , DI for Pre-eclampsia, Preventing the Spread of Coronavirus Discharge Instructions - Follow up Plan Follow up with: Liu Rod MD [Staff Physician] - Disposition: Home, Self-Detention Medications: Home Medications Medication Instructions Recorded Confirmed Type PNV 153-FA 400 mcg-om3 35 mg-dha 1 tab PO DAILY tab 08/25/19 04/13/20 History 25 mg-epa 5 mg-fish oil chew tablet Ferrous Sulfate 325 mg PO DAILY 04/13/20 04/13/20 History Prescriptions/Medication Reconciliation: Continued PNV 153-FA 400 mcg-om3 35 mg-dha 25 mg-epa 5 mg-fish oil chew tablet 1 tab PO DAILY tab Ferrous Sulfate 325 mg PO DAILY - Problem Reconciliation Problems Reviewed?: Yes
== END 2020-04-15 10:55 | disposition home or self-care (01) | DRG 806 ==
PROVIDERS: Admitting Provider Nurse Practitioner Obstetrics & Gynecology; PCP Family Medicine; Visit Provider Nurse Practitioner Obstetrics & Gynecology
DX: O13.3 Gestational [pregnancy-induced] hypertension without significant proteinuria, third trimester (principal); O72.1 Other immediate postpartum hemorrhage; Z37.0 Single live birth; Z3A.39 39 weeks gestation of pregnancy; O66.0 Obstructed labor due to shoulder dystocia; O69.81X0 Labor and delivery complicated by cord around neck, without compression, not applicable or unspecified; O70.1 Second degree perineal laceration during delivery
CPT/HCPCS: 59409; 36415; 59025; 80305; 81001; 82800; 85014; 85018; 85025; 86328; 86850; 87086; 94761; C1758

== ENCOUNTER → 2020-07-01 14:10 | Outpatient (CLI) | payer OTHER, SELFPAY ==
--- NOTE | 2020-07-01 14:14 | XR_ITS ---
PROCEDURE: XR HIP LT 2-3V W/PELVIS CLINICAL INDICATION: LT HIP PAIN COMPARISON: No exams were available for comparison FINDINGS: No fracture or dislocation is evident. No significant degenerative change. No lytic or blastic change. Unremarkable soft tissues. IMPRESSION: Negative left hip and femur Dictated by: Jim Woodall MD 07/01/2020 15:57 Jim Woodall MD in [place] 07/01/2020 15:57
== END ==
PROVIDERS: PCP Family Medicine; Visit Provider Physician Assistant
DX: M25.552 Pain in left hip (principal); M79.605 Pain in left leg
CPT/HCPCS: 73502; 73552

== ENCOUNTER 2020-07-18 13:39 | Emergency (ER) | payer OTHER, SELFPAY ==
[2020-07-18 13:53] VITALS: BP 141/89; PULSE 96; RESP 19; TEMP 36.6; O2SAT 99; BMI 36.0
--- NOTE | 2020-07-18 14:22 | HMH.EDUTC ---
[facility] [place] Disposition Clinical Impression: Sore throat Otitis media Qualifiers: Otitis media type: unspecified Laterality: bilateral Qualified Code(s): H66.93 - Otitis media, unspecified, bilateral Disposition: Home, Self-Care Condition on Discharge: Good Instructions: Sore Throat, Middle Ear Infection, Middle Ear Infections (Alternative Therapy), Amoxicillin and Clavulanic Acid Additional Instructions: *Monitor Temp, Over the counter Motrin or Tylenol as directed/as needed Tylenol every 4 hours and Motrin every 6 hours (as long as your family doctor has told you that you can take it) for fever or pain. and straight to ER if unable to lower temp less than 101.0 after medication given *Warm salt water gargles may help to soothe the throat *Throat Lozenges *Warm fluids like tea with honey may help to soothe the throat *Sleep elevated *Humidifier/Vaporizer Take medication as prescribed Return if needed Follow up IMMEDIATELY for new or worsening symptoms or no Noticeable improvement over the next 48-72 hours. 911 for difficulty breathing or swallowing Prescriptions: Amoxicillin/Potassium Clav [Augmentin 875-125 Tablet] 1 tab PO Q12H 10 Days #20 tab Transmission Status: Pending to [id number] Referrals: Evelio Smith MD [Primary Care Provider] - As needed Time of Disposition: 14:33 Medical Decision Making - Jaspal Inquiry Pt receiving controlled substance: No Jaspal was queried for this patient: No Vital Signs: 07/18/20 13:53 Temperature 97.9 F Temperature Source Oral Pulse Rate [Right Brachial] 96 H Respiratory Rate 19 Blood Pressure [Right Arm] 141/89 H Blood Pressure Mean [Right Arm] 106 Blood Pressure Source [Right Arm] Automatic Cuff Blood Pressure Position [Right Arm] Sitting 02 Sat by Pulse Oximetry 99 Oxygen Delivery Method Room Air Medical Decision Narrative: Patient declined strep test [facility] [place] HPI - General Stated complaint: gland swollen ear pain Time Seen by Provider: 07/18/20 14:22 Mode of Arrival: Ambulatory Source of Information: Patient Limitations: No Limitations Description of Symptoms (Recalled from Triage Doc. by RN): PATIENT C/O SWOLLEN TONSILS AND RIGHT EAR PAIN X 3 DAYS HEENT Symptoms (Recalled from RN notes): Yes Resp Symptoms (Recalled from RN notes): No Skin Symptoms (Recalled from RN notes): No MS Symptoms (Recalled from RN notes): No Functional Status (Recalled from RN notes): WNL - History of Present Illness Provider Complaint: Patient states that she has been having pain in her right ear and swelling in her right tonsil area that has continued to get worse States that she is States that today she is feeling worse so she come in get checked to see if she needed antibiotics - Related Data Home Medications Medication Instructions Recorded Confirmed PNV 153-FA 400 mcg-om3 35 mg-dha 1 tab PO DAILY tab 08/25/19 04/27/20 25 mg-epa 5 mg-fish oil chew tablet Ferrous Sulfate 325 mg PO DAILY 04/13/20 04/27/20 Previous Rx's Medication Instructions Recorded citalopram 10 mg tablet 10 mg PO DAILY #30 tab 04/19/20 Amoxicillin/Potassium Clav 1 tab PO Q12H 10 Days #20 tab 07/18/20 [Augmentin 875-125 Tablet] Allergies Allergy/AdvReac Type Severity Reaction Status Date / Time No Known Allergies Allergy Verified 04/27/20 12:04 - Worker's Comp Is this a Worker's Comp case?: No [facility] History - Hepatitis A Screen Drug use history?: No High risk sexual behaviors?: No History of sexually transmitted infection?: No Currently employed?: No Childcare worker?: No Do you have indoor plumbing?: Yes Do you have electricity?: Yes Attestation statement:: This patient has been screened for Hepatitis A risk factors. I have reviewed the patient's past medical history: Yes Medical History: Reports:: Anxiety Denies:: Cancer, Diabetes Mellitus Type 1, Diabetes Mellitus Type 2, Hypertension, MRSA Laterality Cases: Bilateral: Myringoto
[2020-07-18 14:40] VITALS: BP 141/89; PULSE 96; RESP 19; TEMP 36.6; O2SAT 99
== END 2020-07-18 14:41 | disposition home or self-care (01) ==
PROVIDERS: Emergency Provider Nurse Practitioner; PCP Family Medicine
DX: H66.93 Otitis media, unspecified, bilateral (principal); F41.9 Anxiety disorder, unspecified; Z87.891 Personal history of nicotine dependence
CPT/HCPCS: 99201

== ENCOUNTER 2020-08-31 13:59 | Emergency (ER) | payer OTHER, SELFPAY ==
[2020-08-31 14:30] VITALS: BP 159/95; PULSE 115; RESP 14; TEMP 37; O2SAT 99; BMI 37.5
--- NOTE | 2020-08-31 14:45 | HMH.EDUTC ---
[facility] [place] Disposition Clinical Impression: Sinusitis Qualifiers: Sinusitis location: unspecified location Chronicity: acute Recurrence: non-recurrent Qualified Code(s): J01.90 - Acute sinusitis, unspecified Disposition: Home, Self-Care Condition on Discharge: Good Instructions: Sinusitis, DI for Sinusitis Additional Instructions: Drink plenty of fluids. Take tylenol or ibuprofen for pain or fever. Take the medications as directed. Follow up with your regular doctor. GO TO THE ER FOR ANY WORSENING SYMPTOMS Prescriptions: Azithromycin [Z-Brody 250mg Tab*] 250 mg PO UD DOSE PK #6 tab Transmission Status: Received by [id number] Referrals: Evelio Smith MD [Primary Care Provider] - Time of Disposition: 15:04 Medical Decision Making - Medical Records Medical records reviewed: No: I reviewed the patient's medical records. - Jaspal Inquiry Pt receiving controlled substance: No Vital Signs: 08/31/20 14:30 08/31/20 15:16 Temperature 98.6 F 98.6 F Temperature Source Oral Oral Pulse Rate 115 H Pulse Rate [Radial] 115 H Respiratory Rate 14 14 Blood Pressure 159/95 H Blood Pressure [Right Arm] 159/95 H Blood Pressure Mean [Right Arm] 116 Blood Pressure Source Automatic Cuff Blood Pressure Source [Right Arm] Automatic Cuff Blood Pressure Position Sitting Blood Pressure Position [Right Arm] Sitting 02 Sat by Pulse Oximetry 99 Oxygen Delivery Method Room Air Room Air [facility] [place] HPI - General Stated complaint: drainage Time Seen by Provider: 08/31/20 14:45 Mode of Arrival: Ambulatory Source of Information: Patient Limitations: No Limitations Description of Symptoms (Recalled from Triage Doc. by RN): sinus fever HEENT Symptoms (Recalled from RN notes): Yes Resp Symptoms (Recalled from RN notes): No Skin Symptoms (Recalled from RN notes): No MS Symptoms (Recalled from RN notes): No Functional Status (Recalled from RN notes): wnl - History of Present Illness Provider Complaint: She c/o having sinus congestion and drainage for the past 3 days. She denies any fever or chills. She does admit to having a mild cough. She denies any possibility that she could be exposed to COVID-19. She adamantly refuses to be checked for covid today. - Related Data Home Medications Medication Instructions Recorded Confirmed PNV 153-FA 400 mcg-om3 35 mg-dha 1 tab PO DAILY tab 08/25/19 04/27/20 25 mg-epa 5 mg-fish oil chew tablet Ferrous Sulfate 325 mg PO DAILY 04/13/20 04/27/20 Previous Rx's Medication Instructions Recorded citalopram 10 mg tablet 10 mg PO DAILY #30 tab 04/19/20 Amoxicillin/Potassium Clav 1 tab PO Q12H 10 Days #20 tab 07/18/20 [Augmentin 875-125 Tablet] Azithromycin [Z-Brody 250mg Tab*] 250 mg PO UD DOSE PK #6 tab 08/31/20 Allergies Allergy/AdvReac Type Severity Reaction Status Date / Time No Known Allergies Allergy Verified 04/27/20 12:04 - Worker's Comp Is this a Worker's Comp case?: No [facility] History - Hepatitis A Screen Drug use history?: No High risk sexual behaviors?: No History of sexually transmitted infection?: No Currently employed?: No Childcare worker?: No Do you have indoor plumbing?: Yes Do you have electricity?: Yes Attestation statement:: This patient has been screened for Hepatitis A risk factors. I have reviewed the patient's past medical history: Yes Medical History: Reports:: Anxiety Denies:: Cancer, Diabetes Mellitus Type 1, Diabetes Mellitus Type 2, Hypertension, MRSA Laterality Cases: Bilateral: Myringotomy (Ear Tubes) Other Surgeries: Yes: No Previous Surgery, Other. No: Amputation: No Fractures: No Comment: wisdom teeth extraction - Social History Smoking Status: Former smoker Tobacco Type: cigarettes # Packs/Day (cigarettes): 1 Alcohol Intake: never Substance Use Type: marijuana Occupational Status: other Housing: house Household Members: family - Psychiatric History Pschychiatric History:: Reports
[2020-08-31 15:16] VITALS: BP 159/95; PULSE 115; RESP 14; TEMP 37; O2SAT 99
== END 2020-08-31 15:28 | disposition home or self-care (01) ==
PROVIDERS: Emergency Provider Nurse Practitioner Family; PCP Family Medicine
DX: J01.90 Acute sinusitis, unspecified (principal); Z87.891 Personal history of nicotine dependence
CPT/HCPCS: 99201

== ENCOUNTER → 2021-01-19 10:22 | Outpatient (CLI) | payer OTHER, SELFPAY ==
--- NOTE | 2021-01-19 10:22 | US_ITS ---
PROCEDURE: US BREAST LT COMPLETE CLINICAL INDICATION: pt. has lump in left breast Patient is currently breast feeding COMPARISON: No exams were available for comparison FINDINGS: No cystic or solid lesions demonstrated. IMPRESSION: No cystic or solid lesions evident. Consider mammographic follow-up if symptoms persist. Dictated by: Jim Woodall MD 01/24/2021 10:42 Jim Woodall MD in [place] 01/24/2021 10:42
== END ==
PROVIDERS: PCP Family Medicine; Visit Provider Nurse Practitioner Obstetrics & Gynecology
DX: N63.20 Unspecified lump in the left breast, unspecified quadrant (principal)
CPT/HCPCS: 76641

== ENCOUNTER → 2021-03-24 09:23 | Outpatient (CLI) | payer OTHER, SELFPAY ==
--- NOTE | 2021-03-24 09:28 | US_ITS ---
PROCEDURE: US ABDOMEN LIMITED CLINICAL INDICATION: DYSPEPSIA,ABD PAIN COMPARISON: No exams were available for comparison FINDINGS: PANCREAS: Unremarkable. No obvious mass or abnormal fluid collection. No ductal dilatation LIVER: No focal liver lesions demonstrated. Homogeneous echogenicity. No intrahepatic biliary ductal dilatation evident. There is appropriate direction of blood flow within a non dilated portal vein RIGHT KIDNEY: Unremarkable. Normal size and echogenicity. No hydronephrosis GALLBLADDER: No gallstones, gallbladder wall thickening, pericholecystic fluid, or biliary dilatation. IMPRESSION: Unremarkable limited abdominal ultrasound as detailed above disc Dictated by: Jim Woodall MD 03/24/2021 17:28 Jim Woodall MD in [place] 03/24/2021 17:28
== END ==
PROVIDERS: PCP Family Medicine; Visit Provider Family Medicine
DX: R10.84 Generalized abdominal pain (principal); R13.10 Dysphagia, unspecified
CPT/HCPCS: 76705

== ENCOUNTER → 2021-07-11 17:12 | Outpatient (CLI) | payer OTHER, SELFPAY ==
[2021-07-11 18:58] LABS: Basophils # 0.1 K/mm3 (0-0.2); Basophils % 2.3 % (0.1-2.0); Eosinophils # 0.2 K/mm3 (0.0-0.4); Eosinophils % 2.6 % (0.1-12.0); Hematocrit 45.2 % (37.0-47.0); Hemoglobin 13.8 g/dL (12.2-16.2); Lymphocytes # 2.8 K/mm3 (0.7-4.5); Lymphocytes % 47.2 % (10-50); Mean Corpuscular HGB Conc 30.5 g/dL (31.8-35.4); Mean Corpuscular Hemoglobin 25.6 pg (27.0-31.2); Mean Corpuscular Volume 83.9 fl (81-99); Mean Platelet Volume 8.5 fl (7.4-10.4); Monocytes # 0.4 K/mm3 (0.1-1.0); Monocytes % 5.9 % (1.7-9.3); Neutrophils # 2.5 K/mm3 (1.8-7.8); Neutrophils % 42.1 % (37.0-80.0); Platelet Count 232 K/mm3 (142-424); Red Blood Count 5.38 M/mm3 (4.20-5.40); Red Cell Distribution Width 14.5 % (11.5-17.5)
[2021-07-11 19:03] LABS: Alanine Aminotransferase 90 U/L (12-78); Albumin Level 4.3 g/dl (3.5-5.0); Albumin/Globulin Ratio 1.4 (1.1-1.8); Alkaline Phosphatase 111 U/L (38-126); Anion Gap 16.4 mEq/L (5-15); Aspartate Amino Transferase 46 U/L (14-36); Bilirubin,Total 0.5 mg/dl (0.2-1.3); Blood Urea Nitrogen 10 mg/dl (7-17); Calcium 8.8 mg/dl (8.4-10.2); Carbon Dioxide 25 mmol/L (22.0-30.0); Chloride 104 mmol/L (98-107); Chol/HDL Ratio 3.4 (1-3.5); Cholesterol 140 mg/dl (140-200); Estimated Glomerular Filt Rate 121 ml/min (>60); GFR (African American) 146 ML/MIN (>60); Globulin 3.1 g/dL (1.3-3.2); Glucose 95 mg/dl (74-100); HDL Cholesterol 41 mg/dl (40-60); Potassium 4.4 mmoL/L (3.5-5.1); Sodium 141 mmol/L (136-145); Total Protein,Serum 7.4 g/dl (6.3-8.2); Triglycerides 85 mg/dl (30-150); VLDL Cholesterol 17 mg/dL (0-40)
[2021-07-11 19:14] LABS: Direct LDL Cholesterol 76.44 mg/dL (100-129)
[2021-07-11 19:19] LABS: 25-OH Vitamin D, Total 28.6 ng/mL (30-100)
[2021-07-11 19:20] LABS: Free T4 (Free Thyroxine) 1.27 ng/dl (0.78-2.19)
== END ==
PROVIDERS: Visit Provider Physician Assistant
DX: R63.5 Abnormal weight gain (principal); E55.9 Vitamin D deficiency, unspecified
CPT/HCPCS: 80053; 80061; 82306; 84439; 84443; 85025

== ENCOUNTER → 2021-09-21 17:57 | Outpatient (CLI) | payer OTHER, SELFPAY ==
[2021-09-21 18:55] LABS: Basophils # 0.1 K/mm3 (0-0.2); Basophils % 0.7 % (0.1-2.0); Eosinophils # 0.3 K/mm3 (0.0-0.4); Eosinophils % 3.5 % (0.1-12.0); Hematocrit 44.2 % (37.0-47.0); Hemoglobin 13.6 g/dL (12.2-16.2); Lymphocytes # 2.8 K/mm3 (0.7-4.5); Lymphocytes % 31.4 % (10-50); Mean Corpuscular HGB Conc 30.7 g/dL (31.8-35.4); Mean Corpuscular Hemoglobin 26.6 pg (27.0-31.2); Mean Corpuscular Volume 86.8 fl (81-99); Mean Platelet Volume 8.1 fl (7.4-10.4); Monocytes # 0.5 K/mm3 (0.1-1.0); Neutrophils # 5.2 K/mm3 (1.8-7.8); Neutrophils % 58.4 % (37.0-80.0); Platelet Count 338 K/mm3 (142-424); Red Cell Distribution Width 14.5 % (11.5-17.5); White Blood Count 8.9 K/mm3 (4.8-10.8)
[2021-09-21 19:04] LABS: Alanine Aminotransferase 25 U/L (12-78); Albumin Level 4.3 g/dl (3.5-5.0); Albumin/Globulin Ratio 1.5 (1.1-1.8); Alkaline Phosphatase 119 U/L (38-126); Anion Gap 12.1 mEq/L (5-15); Aspartate Amino Transferase 32 U/L (14-36); Bilirubin,Total 0.4 mg/dl (0.2-1.3); Blood Urea Nitrogen 12 mg/dl (7-17); Calcium 9.2 mg/dl (8.4-10.2); Carbon Dioxide 29 mmol/L (22.0-30.0); Chloride 104 mmol/L (98-107); Chol/HDL Ratio 4.1 (1-3.5); Cholesterol 164 mg/dl (140-200); Estimated Glomerular Filt Rate 149 ml/min (>60); GFR (African American) 180 ML/MIN (>60); Globulin 2.9 g/dL (1.3-3.2); Glucose 82 mg/dl (74-100); HDL Cholesterol 40 mg/dl (40-60); Potassium 4.1 mmoL/L (3.5-5.1); Sodium 141 mmol/L (136-145); Total Protein,Serum 7.2 g/dl (6.3-8.2); Triglycerides 190 mg/dl (30-150); VLDL Cholesterol 38 mg/dL (0-40)
[2021-09-21 19:15] LABS: Direct LDL Cholesterol 97.18 mg/dL (100-129)
[2021-09-21 19:22] LABS: 25-OH Vitamin D, Total 33.7 ng/mL (30-100)
[2021-09-21 19:26] LABS: HCG,Quantitative < 2 mIU/ml (0-5.42)
[2021-09-21 19:35] LABS: Thyroid Stimulating Hormone 1.46 uIU/mL (0.465-4.68)
[2021-09-23 08:37] LABS: Prolactin 13.4 ng/mL (4.8-23.3)
== END ==
PROVIDERS: Visit Provider Physician Assistant
DX: I10 Essential (primary) hypertension (principal); N64.3 Galactorrhea not associated with childbirth; E66.3 Overweight; Z68.39 Body mass index [BMI] 39.0-39.9, adult
CPT/HCPCS: 80053; 80061; 82306; 84146; 84443; 84702; 85025

== ENCOUNTER → 2021-10-09 13:20 | Outpatient (CLI) | payer OTHER, SELFPAY ==
--- NOTE | 2021-10-09 13:20 | US_ITS ---
PROCEDURE: US KIDNEY CLINICAL INDICATION: COMPARISON: No exams were available for comparison FINDINGS: The right kidney is [id number]. No hydronephrosis, cortical thinning, or renal mass or perinephric fluid collection is evident. The left kidney is [id number]. No hydronephrosis, cortical thinning, or renal mass or perinephric fluid collection is evident. IMPRESSION: Unremarkable bilateral renal ultrasound Dictated by: Jim Woodall MD 10/09/2021 18:17 Jim Woodall MD in [place] 10/09/2021 18:17
--- NOTE | 2021-10-09 13:55 | MR_ITS ---
PROCEDURE: MR HEAD/BRAIN WO CON CLINICAL INDICATION: galactorrhea COMPARISON: No exams were available for comparison TECHNIQUE: Routine multiplanar multi echo sequences are performed without gadolinium enhancement. FINDINGS: No midline shift, mass effect, intracranial hemorrhage, or hydrocephalus is evident. The cerebellopontine angles, cerebellum, midbrain and brainstem have an unremarkable appearance. No evidence of acute infarction. The pituitary is not enlarged. Micro adenomas may not be visualized without contrast. The optic chiasm, corpus callosum, and craniocervical junction has an unremarkable appearance. Slight increased T2 signal within the mastoid sinuses on both sides suggesting a small amount of fluid within the mastoids. No layering fluid evident. Prominent lobular mucosal thickening is present in the floor of the maxillary sinuses on both sides some of which could be due to retention cysts. No sinus air-fluid level. IMPRESSION: No acute intracranial findings. No large pituitary mass. Micro adenomas may not be visualized without thin-section dynamic imaging. Bilateral maxillary and mastoid sinus disease Dictated by: Jim Woodall MD 10/11/2021 08:32 Jim Woodall MD in [place] 10/11/2021 08:32
== END ==
PROVIDERS: PCP Physician Assistant; Visit Provider Physician Assistant
DX: I10 Essential (primary) hypertension (principal); N64.3 Galactorrhea not associated with childbirth
CPT/HCPCS: 70551; 76770

== ENCOUNTER → 2022-01-04 15:40 | Outpatient (CLI) | payer OTHER, SELFPAY | PROVIDERS: PCP Physician Assistant; Visit Provider Nurse Practitioner | DX: Z11.52 Encounter for screening for COVID-19 (principal) | CPT/HCPCS: C9803; U0003; U0005 ==

== ENCOUNTER 2022-02-23 15:46 | Emergency (ER) | payer OTHER, SELFPAY ==
[2022-02-23 16:20] VITALS: BP 145/85; PULSE 116; RESP 18; TEMP 36.8; O2SAT 96; BMI 37.8
--- NOTE | 2022-02-23 16:28 | HMH.EDUTC ---
[facility] Disposition Clinical Impression: Flu-like symptoms Disposition: Home, Self-Care Condition on Discharge: Good Instructions: How to Avoid a Cold or Flu, Influenza Additional Instructions: ? Start Tamiflu today if you are going to take it. Discussed risk and possible benefits. ? Lots of rest ? Increase Fluids water, Gatorade, powerade, pedialyte,if /toddler/child ? Alternate Tylenol and / or ibuprofen as discussed for fever, aches, chills Follow up IMMEDIATELY with your family doctor for new or worsening Symptoms OR no noticeable improvement over the next 48-72 hours, 911 for difficulty or breathing ? You or your child area contagious until no fever, aches, chills for 24 hours with medication for symptoms ? Help Prevent the spread of influenza: ? Wash your hands often. Use soap and water. Wash your hands after you use the bathroom, change a child's diapers, or sneeze. Wash your hands before you prepare or eat food. Use gel hand cleanser that has 60% alcohol, when soap and water are not available. Do not touch your eyes, nose, or mouth unless you have washed your hands first. ? Cover your mouth when you sneeze or cough. Cough into a tissue or the bend of your arm. If you use a tissue, throw it away immediately and wash your hands. ? Clean shared items with a germ-killing chicken cleaner. Clean table surfaces, doorknobs, and light switches. Do not share towels, silverware, and dishes with people who are sick. Wash bed sheets, towels, silverware, and dishes with soap and water. ? Wear a mask over your mouth and nose if you are sick. The face mask may help protect others from becoming infected with the flu. Wear the mask when in common areas of your home or if you seek care with a healthcare provider. ? Stay away from others if you are sick. Stay at home until 24 hours after your fever and symptoms are gone. Prescriptions: Oseltamivir Phosphate [Tamiflu 75mg Capsule] 75 mg PO BID #10 cap Transmission Status: Pending to [facility] Referrals: Aliyah Bonilla PA [Primary Care Provider] - As needed Time of Disposition: 17:00 Medical Decision Making - Jaspal Inquiry Pt receiving controlled substance: No Jaspal was queried for this patient: No Vital Signs: 02/23/22 16:20 Temperature 98.2 F Temperature Source Oral Pulse Rate [Left] 116 H Respiratory Rate 18 Blood Pressure [Right Arm] 145/85 H Blood Pressure Mean [Right Arm] 105 02 Sat by Pulse Oximetry 96 - Lab Data Lab results reviewed: Yes: I reviewed the patient's lab results. Lab Results 02/23/22 16:15: Influenza Type A Ag Negative, Influenza Type B Ag Negative 02/23/22 16:32: Group A Strep Rapid Negative Orders (Tests/Meds): ORDERS Category Date Time Status Strep Screen Confirmation Stat Micro 02/23/22 16:32 Received [facility] HPI - General Stated complaint: sore throat, fever,body aches Time Seen by Provider: 02/23/22 16:28 Mode of Arrival: Ambulatory Source of Information: Patient Limitations: No Limitations Description of Symptoms (Recalled from Triage Doc. by RN): pt c/o a sore throat, body aches and fever since last night. HEENT Symptoms (Recalled from RN notes): Yes Resp Symptoms (Recalled from RN notes): No Skin Symptoms (Recalled from RN notes): No MS Symptoms (Recalled from RN notes): No Functional Status (Recalled from RN notes): wnl - History of Present Illness Provider Complaint: Patient states that she has been having sore throat, fever, chills and bodyaches States that she woke up this morning feeling achy all over, sore scratchy throat and over all not feeling well States that as the day went on she continued to feel worse so she came in - Related Data Previous Rx's Medication Instructions Recorded fluconazole 150 mg tablet 150 mg PO Q3D 0 Days #2 tab 01/08/22 Oseltamivir Phosphate [Tamiflu 75 mg PO BID #10 cap 02/23/22 75mg Capsule] Allergies Allergy/AdvReac Type Severity Reaction Status Date / Time
[2022-02-23 16:33] LABS: UTC Influenza A Antigen Negative (Negative); UTC Influenza B Antigen Negative (Negative)
[2022-02-23 16:50] LABS: Strep Scrn Group A (Rapid) Negative (Negative)
[2022-02-23 17:07] VITALS: BP 145/85; PULSE 116; RESP 18; TEMP 36.8
== END 2022-02-23 17:08 | disposition home or self-care (01) ==
PROVIDERS: Emergency Provider Nurse Practitioner; PCP Physician Assistant
DX: J02.9 Acute pharyngitis, unspecified (principal); F41.9 Anxiety disorder, unspecified; Z87.891 Personal history of nicotine dependence
CPT/HCPCS: 87430; 87804; 99212; G0463

== ENCOUNTER → 2022-06-25 06:21 | Outpatient (CLI) | payer OTHER, SELFPAY | PROVIDERS: Visit Provider Nurse Practitioner Obstetrics & Gynecology | DX: L02.91 Cutaneous abscess, unspecified (principal); B95.7 Other staphylococcus as the cause of diseases classified elsewhere | CPT/HCPCS: 87070; 87077; 87186; 87205 ==

== ENCOUNTER → 2022-06-25 11:17 | Outpatient (CLI) | payer OTHER, SELFPAY ==
[2022-06-26 07:10] LABS: HSV 1 IgG, Type Spec <0.91 index (0.00-0.90); HSV 2 IgG, Type Spec <0.91 index (0.00-0.90)
== END ==
PROVIDERS: PCP Physician Assistant; Visit Provider Nurse Practitioner Obstetrics & Gynecology
DX: N76.4 Abscess of vulva (principal)
CPT/HCPCS: 36415; 86695; 86790

== ENCOUNTER 2022-09-14 19:36 | Emergency (ER) | payer OTHER, SELFPAY ==
--- NOTE | 2022-09-14 19:43 | XR_ITS ---
PROCEDURE INFORMATION: Exam: XR Left Knee Exam date and time: 09/14/2022 7:42 PM Age: 27 years old Clinical indication: Injury or trauma; Fall; Blunt trauma; Knee; Left; Additional info: Injured knee jumping on trampoline TECHNIQUE: Imaging protocol: Radiologic exam of the Left knee. Views: 3 views. COMPARISON: CR XR FEMUR LT 2V 07/01/2020 2:41 PM FINDINGS: Bones/joints: Normal. Soft tissues: Normal. IMPRESSION: No acute findings.
[2022-09-14 20:07] VITALS: BP 157/96; PULSE 125; RESP 18; TEMP 36.6; O2SAT 98; BMI 29.0
--- NOTE | 2022-09-14 20:31 | EXP.UTC ---
Discharge Plan Disposition Patient Disposition: Home, Self-Care Condition: Good Prescriptions Prescriptions: New etodolac 200 mg capsule 200 mg PO Q8H PRN (Reason: pain) Qty: 20 0RF No Action dextroamphetamine-amphetamine [Adderall XR] 20 mg capsule,extended release 24hr 20 mg PO DAILY Referrals Follow up/Referrals: Rian Lynch JR, MD [Physician] - See instructions Aliyah Bonilla PA [Primary Care Provider] - See instructions Nathan Vang DO [Staff Physician] - See instructions Activity Restrictions/Add. Instructions Additional Instructions/Restrictions: *no weight bearing as tolerated *RICE, Rest the extremity, Ice 15-20 minutes 3-4 times daily, Compress- wear the jamie wrap as discussed as much as possible to help reduce swelling and pain, Elevate the extremity when at rest *Knee immobilizer is for support and help control swelling, use it except in the shower. Be sure that is not to tight but not to loose either *Elevate when resting? *Etodolac every 8 hours as needed for pain an inflammation. If need something more can take Tylenol in between doses of Etodolac to help Do not take Ibuprofen with Etodolac Immediately follow up with your family doctor for new or worsening of symptoms, or no noticeable improvement over the next 3-5 days Call Orthopedic office and make appointment Straight to ER if any life threatening symptoms Clinical Impressions Clinical Impression: Injury of knee, left Qualifiers: Encounter type: initial encounter Qualified Code(s): S89.92XA - Unspecified injury of left lower leg, initial encounter Instructions Patient Instructions: How to Use Crutches, How To Perform RICE (Rest, Ice, Compress, Elevate), Etodolac Discharge ED Provider: Rashida Goel [facility] HPI General Stated complaint: AO 09/14/22 1845 injury left knee and ankle Mode of Arrival: Wheelchair Source of Information: Patient Limitations: No Limitations Time Seen by Provider: 09/14/22 20:39 Description of Symptoms (Recalled from Triage Doc. by RN): pt comes in with left knee pain. pt states she fell earlier this evening. pt states she heard a loud pop HEENT Symptoms (Recalled from RN notes): No Resp Symptoms (Recalled from RN notes): No Skin Symptoms (Recalled from RN notes): No MS Symptoms (Recalled from RN notes): Yes Functional Status (Recalled from RN notes): n/a History of Present Illness Provider Complaint: Patient states that she was jumping on trampoline earlier when she came down and her knee buckled to the side and she felt and heard a loud pop States that ever since she has been having pain in the side of her knee and when she stands up and tries to put weight on it she feels like it is going to give out and stuff in there just shifts and she feels like she is going to fall so they brought her in to get her checked Related Data Home Medications Medication Instructions Recorded Confirmed dextroamphetamine-amphetamine ER 20 mg PO DAILY adhd 09/14/22 09/14/22 20 mg 24hr capsule,extend release (Adderall XR) Previous Rx's Medication Instructions Recorded etodolac 200 mg capsule 200 mg PO Q8H PRN pain #20 caps 09/14/22 Allergies Allergy/AdvReac Type Severity Reaction Status Date / Time No Known Allergies Allergy Verified 09/14/22 20:12 Worker's Comp Is this a Worker's Comp case?: No PFSH PFSH Social History Smoking Status: Former smoker second hand exposure: No alcohol intake: never substance use type: former substance user and marijuana current occupational status: unemployed Travel in the last 8 weeks: None household members: family housing: house ROS Obtained: Yes All systems reviewed & no additional complaints except as documented and Yes Systems reviewed as appropriate & no additional complaints except as documented Cardiovascular Cardiovascular: Reports system reviewed and no additional complaints
[2022-09-14 20:57] VITALS: BP 157/96; PULSE 125; RESP 18; TEMP 36.6
== END 2022-09-14 20:58 | disposition home or self-care (01) ==
PROVIDERS: Emergency Provider Nurse Practitioner; PCP Physician Assistant
DX: S89.92XA Unspecified injury of left lower leg, initial encounter (principal); Y93.44 Activity, trampolining
CPT/HCPCS: 73562; 99212; G0463

== ENCOUNTER → 2022-09-26 10:10 | Outpatient (CLI) | payer OTHER, SELFPAY ==
--- NOTE | 2022-09-26 10:10 | MR_ITS ---
FINAL REPORT CLINICAL HISTORY: LEFT KNE PAIN AFTER INJURY ON 09/14/22 UNABLE TO BEAR FULL WEIGHT ON LEG KNEE POPPED WHEN INJURY HAPPENED CRUNCHING WHEN MOVING KNEE FINDINGS: Multi planar MR imaging was performed of the left knee. There is complete disruption of the anterior cruciate ligament. The posterior cruciate ligament is intact. The quadriceps and patellar tendons are intact. The medial and lateral menisci are intact without evidence of tear. The medial and lateral collateral ligaments appear intact. The medial and lateral retinacula appear intact. There is a nondisplaced fracture through the posterior medial tibial plateau well seen on images 13 and 14 of series 5 extensive marrow edema. There is marrow edema in the posterior aspect of the lateral tibial plateau. A moderate joint effusion is present. IMPRESSION: Complete disruption of the anterior cruciate ligament. Nondisplaced fracture and marrow edema in the posterior medial tibial plateau with marrow edema in the posterior aspect of the lateral tibial plateau. Moderate joint effusion. Reviewed, Interpreted and Dictated by Saqib Mcgowan MD Transcribed by Wendy Leon Authenticated and . [facility]
== END ==
PROVIDERS: PCP Physician Assistant; Visit Provider Orthopaedic Surgery
DX: M25.562 Pain in left knee (principal); S89.92XA Unspecified injury of left lower leg, initial encounter
CPT/HCPCS: 73721

== ENCOUNTER 2022-09-28 15:35 | Outpatient (RCR) | payer OTHER, SELFPAY | END 2022-09-28 16:30 | disposition home or self-care (01) | LOC: PT 15:35 | PROVIDERS: Visit Provider Orthopaedic Surgery | DX: M23.92 Unspecified internal derangement of left knee (principal); S83.512A Sprain of anterior cruciate ligament of left knee, initial encounter; S82.142A Displaced bicondylar fracture of left tibia, initial encounter for closed fracture | CPT/HCPCS: 97760 ==

== ENCOUNTER 2022-10-17 11:00 | Outpatient (RCR) | payer OTHER, SELFPAY | END 2022-10-17 11:05 | disposition home or self-care (01) | LOC: PT 11:00 | PROVIDERS: PCP Physician Assistant; Visit Provider Family Medicine | DX: S83.512A Sprain of anterior cruciate ligament of left knee, initial encounter (principal) | CPT/HCPCS: 97110; 97163 ==

== ENCOUNTER 2022-12-15 14:08 | Emergency (ER) | payer OTHER, SELFPAY ==
--- NOTE | 2022-12-15 15:12 | EXP.UTC ---
Discharge Plan Disposition Patient Disposition: Home, Self-Care Condition: Good Prescriptions Prescriptions: New amoxicillin [amoxicillin] 500 mg tablet 500 mg PO TID 10 Days Qty: 30 0RF methylprednisolone 4 mg Tablets,Dose Pack 4 mg PO DIRECTED Qty: 21 0RF pfioeypprccsgwz-duehsayox-DP [Bromfed DM] 2-30-10 mg/5 mL Syrup 5 ml PO Q6H PRN (Reason: Cough) Qty: 240 0RF No Action dextroamphetamine-amphetamine [Adderall XR] 20 mg capsule,extended release 24hr 20 mg PO DAILY Qty: 30 0RF Referrals Follow up/Referrals: Aliyah Bonilla PA [Primary Care Provider] - See instructions Activity Restrictions/Add. Instructions Additional Instructions/Restrictions: Drink plenty of fluids. Take tylenol or ibuprofen for pain or fever. Take the medications as directed. Follow up with your regular doctor. GO TO THE ER FOR ANY WORSENING SYMPTOMS Clinical Impressions Clinical Impression: Uvulitis, Pharyngitis Instructions Patient Instructions: DI for Uvulitis Discharge ED Provider: Miguelito Milligan [facility] General Stated complaint: throat and roof of mouth sore Time Seen by Provider: 12/15/22 15:12 History of Present Illness Provider Complaint: She states that for the past 2 days she has had worsening sore throat and swelling of her uvula. Related Data Previous Rx's Medication Instructions Recorded dextroamphetamine-amphetamine ER 20 mg PO DAILY adhd #30 caps 10/30/22 20 mg 24hr capsule,extend release (Adderall XR) amoxicillin 500 mg tablet 500 mg PO TID 10 days #30 tabs 12/15/22 eistdzzqmbmcgsn-egrjrsqmstkzpmi-AS 5 ml PO Q6H PRN Cough #240 mL 12/15/22 2 mg-30 mg-10 mg/5 mL oral syrup (Bromfed DM) methylprednisolone 4 mg tablets in 4 mg PO DIRECTED #21 tabs 12/15/22 a dose pack Allergies Allergy/AdvReac Type Severity Reaction Status Date / Time No Known Allergies Allergy Verified 12/15/22 15:33 [facility] Disclaimer: The information contained in this section may have been updated after the patient was seen, as this information can be updated by other users. Social History Smoking Status: Former smoker second hand exposure: No alcohol intake: never substance use type: former substance user and marijuana current occupational status: unemployed Travel in the last 8 weeks: None household members: family housing: house ROS Obtained: Yes All systems reviewed & no additional complaints except as documented Constitutional Constitutional: Reports chills and Reports fever(s) Eyes Eyes: Denies eye discharge ENT Ears, Nose, Mouth, and Throat: Reports as per HPI Cardiovascular Cardiovascular: Denies chest pain Respiratory Respiratory: Denies chest congestion and Reports cough Gastrointestinal Gastrointestingal: Reports nausea; Denies abdominal pain, constipation, cramping, diarrhea or vomiting Musculoskeletal Musculoskeletal: Denies arthralgias Integumentary/Breasts Skin/Breast: Denies rash Neurologic Neurologic: Denies paresthesias Physical Exam General General appearance: alert and in no apparent distress Head Head exam: atraumatic, normocephalic and normal inspection Eye Eye exam: Present normal appearance, PERRL and EOMI ENT ENT exam: Present mucous membranes moist and normal external ear exam Expanded ENT Exam TM/Canal exam: Bilateral TM: erythema and bulging Nose exam: Absent sinus tenderness Mouth exam: Present normal external inspection; Absent drooling Teeth exam: Present normal inspection Throat exam: Present tonsillar erythema, tonsillomegaly and tonsillar exudate Neck Neck exam: Present normal inspection, full ROM and trachea midline; Absent tenderness, meningismus or lymphadenopathy Chest Chest inspection: Present normal inspection and symmetric chest wall rise; Absent tenderness Respiratory Respiratory exam: Present normal lung sounds bilaterally; Absent respiratory distres
[2022-12-15 15:15] VITALS: BP 135/92; PULSE 90; RESP 20; TEMP 36.9; O2SAT 99; BMI 37.8
[2022-12-15 15:30] LABS: UTC Strep Screen (Rapid) Negative (Negative)
[2022-12-15 15:52] VITALS: BP 135/92; PULSE 90; RESP 20; TEMP 36.9; O2SAT 99
== END 2022-12-15 15:51 | disposition home or self-care (01) ==
PROVIDERS: Emergency Provider Nurse Practitioner Family; PCP Physician Assistant
DX: K12.2 Cellulitis and abscess of mouth (principal); J02.9 Acute pharyngitis, unspecified
CPT/HCPCS: 87880; 99212; G0463

== ENCOUNTER 2023-08-06 08:54 | Emergency (ER) | payer OTHER, SELFPAY ==
--- NOTE | 2023-08-06 09:03 | EXP.UTC ---
Discharge Plan Disposition Patient Disposition: Home, Self-Care Condition: Good Prescriptions Prescriptions: New amoxicillin [amoxicillin] 875 mg tablet 875 mg PO Q12H Qty: 20 0RF nddljmwussiuqkf-ocbuskyol-KS [Bromfed DM] 2-30-10 mg/5 mL Syrup 5 ml PO Q6H PRN (Reason: Cough) Qty: 240 0RF prednisone 10 mg tablet 10 mg PO BID 3 Days Qty: 6 0RF No Action dextroamphetamine-amphetamine [Adderall XR] 20 mg capsule,extended release 24hr 20 mg PO DAILY Qty: 30 0RF Referrals Follow up/Referrals: Aliyah Bonilla PA [Primary Care Provider] - See instructions Activity Restrictions/Add. Instructions Additional Instructions/Restrictions: Drink plenty of fluids. Take tylenol or ibuprofen for pain or fever. Take the medications as directed. Follow up with your regular doctor. GO TO THE ER FOR ANY WORSENING SYMPTOMS Throw your tooth brush away and get a new one. Clinical Impressions Clinical Impression: Strep pharyngitis Stand Alone Forms Stand Alone Forms: Work/School Release Instructions Patient Instructions: Strep Throat, DI for Strep Throat Discharge ED Provider: Miguelito Milligan [facility] General Stated complaint: sore throat,cough,congestion Time Seen by Provider: 08/06/23 09:03 History of Present Illness Provider Complaint: She states that for the past 3 days she has had sore throat, chills, fever, and malaise. Related Data Previous Rx's Medication Instructions Recorded dextroamphetamine-amphetamine ER 20 mg PO DAILY adhd #30 caps 07/31/23 20 mg 24hr capsule,extend release (Adderall XR) amoxicillin 875 mg tablet 875 mg PO Q12H #20 tabs 08/06/23 lcbzbxufayzouqw-mapvwacavmknxuy-CN 5 ml PO Q6H PRN Cough #240 mL 08/06/23 2 mg-30 mg-10 mg/5 mL oral syrup (Bromfed DM) prednisone 10 mg tablet 10 mg PO BID 3 days #6 tabs 08/06/23 Allergies Allergy/AdvReac Type Severity Reaction Status Date / Time No Known Allergies Allergy Verified 07/31/23 13:13 [facility] Disclaimer: The information contained in this section may have been updated after the patient was seen, as this information can be updated by other users. Social History Smoking Status: Former smoker second hand exposure: No alcohol intake: never substance use type: former substance user and marijuana current occupational status: unemployed Travel in the last 8 weeks: None household members: family housing: house ROS Obtained: Yes All systems reviewed & no additional complaints except as documented Constitutional Constitutional: Reports chills and Reports fever(s) Eyes Eyes: Denies eye discharge ENT Ears, Nose, Mouth, and Throat: Reports as per HPI Cardiovascular Cardiovascular: Denies chest pain Respiratory Respiratory: Denies chest congestion and Reports cough Gastrointestinal Gastrointestingal: Reports nausea; Denies abdominal pain, constipation, cramping, diarrhea or vomiting Musculoskeletal Musculoskeletal: Denies arthralgias Integumentary/Breasts Skin/Breast: Denies rash Neurologic Neurologic: Denies paresthesias Physical Exam General General appearance: alert and in no apparent distress Head Head exam: atraumatic, normocephalic and normal inspection Eye Eye exam: Present normal appearance, PERRL and EOMI ENT ENT exam: Present mucous membranes moist and normal external ear exam Expanded ENT Exam TM/Canal exam: Bilateral TM: erythema and bulging Nose exam: Absent sinus tenderness Mouth exam: Present normal external inspection; Absent drooling Teeth exam: Present normal inspection Throat exam: Present tonsillar erythema, tonsillomegaly and tonsillar exudate Neck Neck exam: Present normal inspection, full ROM and trachea midline; Absent tenderness, meningismus or lymphadenopathy Chest Chest inspection: Present normal inspection and symmetric chest wall rise; Absent tenderness Respiratory Respiratory exam: Present nor
[2023-08-06 09:05] VITALS: BP 131/88; PULSE 107; RESP 16; TEMP 36.7; O2SAT 96; BMI 34.3
[2023-08-06 09:17] LABS: UTC Strep Screen (Rapid) Positive (Negative)
[2023-08-06 09:28] VITALS: BP 131/88; PULSE 107; RESP 16; TEMP 36.7; O2SAT 96
== END 2023-08-06 09:30 | disposition home or self-care (01) ==
PROVIDERS: Emergency Provider Nurse Practitioner Family; PCP Physician Assistant
DX: J02.0 Streptococcal pharyngitis (principal); R50.9 Fever, unspecified; R53.81 Other malaise; Z87.891 Personal history of nicotine dependence
CPT/HCPCS: 87635; 87880; 99212; 99214; G0463

== ENCOUNTER → 2023-10-22 23:00 | Outpatient (CLI) | payer OTHER, SELFPAY ==
[2023-10-22 20:24] LABS: Opiate Screen,Urine Negative ng/ml (<300); Phencyclidine Screen,Urine Negative ng/ml (<25)
[2023-10-22 20:26] LABS: Amphetamine/Metha Screen,Urine Positive ng/ml (<1000); Barbiturates Screen,Urine Negative ng/ml (<200)
[2023-10-22 20:27] LABS: Benzodiazepines Screen,Urine Negative ng/ml (<200)
[2023-10-22 20:28] LABS: Cannabinoid Screen,Urine Negative ng/ml (<50)
[2023-10-22 20:29] LABS: Cocaine Screen,Urine Negative ng/ml (<300)
[2023-10-22 20:30] LABS: Methadone Screen,Urine Negative ng/ml (<300)
--- OUTSIDE RECORDS SUMMARY | 2023-10-23 00:09 | XMS_ITS ---
Author Name Unknown Address [address] [place] [address] [place] [address] Phone Organization [facility] Address [address] [place] [address] [place] [address] Phone Care Team Providers Care Ends Breakage Clerk Name Role Phone Estefanía SOTOMAYOR, Wesley Unavailable Plan of Treatment No Plan of Treatment Recorded Assessments Includes: Assessments for all patient encounters No Assessments Recorded Medical Equipment - Implanted Devices Includes: Current and historical Devices No Medical Equipment Recorded Medications Administered Includes: Administered Medications in patient's chart No Administered Medications Recorded Results Includes: Results from 10/23/2022 through 10/23/2023 No Results Recorded For Specified Dates History of Present Illness History of Present Illness not supported for this document type No History of Present Illness Recorded Social History No Social History Recorded - Smoking Status Unknown Medical History Includes: Medical History in patient's chart No Medical History Recorded Family History Includes: Family History in patient's chart No Family History Recorded Review of Systems Review of Systems not supported for this document type No Review of Systems Recorded Mental Status No Mental Status Recorded Functional Status No Functional Status Recorded Physical Exam Physical Exam not supported for this document type No Physical Exam Recorded Insurance Includes: Active Insurance Policies No Insurance Coverage Recorded Guarantor Relationship Effective Dates Guarantor Ph one Mercedez Mack Self Clinical Notes Includes: Signed Clinical Notes starting from 11/01/2022 No Clinical Notes Recorded
--- OUTSIDE RECORDS SUMMARY | 2023-10-23 00:09 | XMS_ITS ---
Care Plan - [facility], [facility] Created on: October 23, 2023 Mercedez Mack : 1995 Sex: Female Author Name Unknown Address [address] [place] [address] [place] [address] Phone Organization [facility] Address [address] [place] [address] [place] [address] Phone Care Team Providers Care Keno Writer/Runner Name Role Phone Estefanía SOTOMAYOR, Wesley Unavailable [phone]
== END ==
PROVIDERS: PCP Physician Assistant; Visit Provider Physician Assistant
DX: Z79.899 Other long term (current) drug therapy (principal)
CPT/HCPCS: 80305

== ENCOUNTER 2023-11-07 17:21 | Emergency (ER) | payer OTHER, SELFPAY ==
[2023-11-07 17:21] VITALS: BP 168/107; PULSE 104; RESP 22; TEMP 37.2; O2SAT 99; BMI 34.4
--- NOTE | 2023-11-07 17:21 | ECG_ITS ---
APPROVED REPORT Exam: Resting ECG HR:96 bpm ECG Measurements Heart Rate 96 AXES [place] 154 P 50 QRSd 88 QRS 67 QT 326 T 46 QTc 379 Conclusion SINUS RHYTHM NONSPECIFIC T-WAVE ABNORMALITY BORDERLINE ECG UNCONFIRMED REPORT Electronically signed by : Ashwin Mariscal MD 11/08/2023 17:59:50
[2023-11-07 17:26] VITALS: PULSE 104
[2023-11-07 17:30] VITALS: BP 144/97; PULSE 89; RESP 14; O2SAT 99
--- NOTE | 2023-11-07 17:43 | XR_ITS ---
PROCEDURE INFORMATION: Exam: XR Cervical Spine Exam date and time: 11/07/2023 6:01 PM Age: 28 years old Clinical indication: Other: Tightnress; Additional info: Chest tightness, neck tightness, bue tremors TECHNIQUE: Imaging protocol: Radiologic exam of the cervical spine. Views: 2 or 3 views. COMPARISON: CR XR CHEST 2V 11/07/2023 5:59 PM FINDINGS: Bones/joints: Cervical vertebrae normal in height. Reversal of normal cervical lordosis centered at C4-C5. Maintained craniocervical junction. No acute fracture. Minimal degenerative changes consisting of uncovertebral hypertrophy and facet arthrosis. Soft tissues: Unremarkable. IMPRESSION: No acute osseous findings.
--- NOTE | 2023-11-07 17:43 | XR_ITS ---
PROCEDURE INFORMATION: Exam: XR Chest Exam date and time: 11/07/2023 5:59 PM Age: 28 years old Clinical indication: Other: Tightness; Additional info: Chest tightness, neck tightness, bue tremors TECHNIQUE: Imaging protocol: Radiologic exam of the chest. Views: 2 views. COMPARISON: No relevant prior studies available. FINDINGS: Lungs: Unremarkable. No consolidation. Pleural spaces: Unremarkable. No pleural effusion. No pneumothorax. Heart/Mediastinum: Unremarkable. No cardiomegaly. Bones/joints: Unremarkable. IMPRESSION: No acute pulmonary findings.
[2023-11-07 17:53] LABS: Basophils # 0.1 K/mm3 (0-0.2); Basophils % 0.9 % (0.1-2.0); Eosinophils # 0.4 K/mm3 (0.0-0.4); Hematocrit 42.5 % (37.0-47.0); Hemoglobin 14.4 g/dL (12.2-16.2); Lymphocytes # 3.2 K/mm3 (0.7-4.5); Lymphocytes % 26.9 % (10-50); Mean Corpuscular Hemoglobin 28.7 pg (27.0-31.2); Mean Corpuscular Volume 84.6 fl (81-99); Mean Platelet Volume 8.2 fl (7.4-10.4); Monocytes # 0.6 K/mm3 (0.1-1.0); Monocytes % 4.8 % (1.7-9.3); Neutrophils # 7.6 K/mm3 (1.8-7.8); Neutrophils % 64.4 % (37.0-80.0); Platelet Count 270 K/mm3 (142-424); Red Blood Count 5.03 M/mm3 (4.20-5.40); Red Cell Distribution Width 13.7 % (11.5-17.5); White Blood Count 11.7 K/mm3 (4.8-10.8)
[2023-11-07 17:56] LABS: Chloride 101 mmol/L (98-107)
[2023-11-07 17:57] LABS: Sodium 136 mmol/L (136-145)
[2023-11-07 17:59] LABS: Alanine Aminotransferase 22 U/L (12-78); Alkaline Phosphatase 93 U/L (38-126); Aspartate Amino Transferase 39 U/L (14-36); Bilirubin,Total 0.8 mg/dl (0.2-1.3); Blood Urea Nitrogen 12 mg/dl (7-17); Carbon Dioxide 24 mmol/L (22.0-30.0); Creatinine Clearance Estimated 172 mL/min (50-200); Estimated Glomerular Filt Rate 100 ml/min (>60); GFR (African American) 121 ML/MIN (>60)
[2023-11-07 18:00] LABS: Albumin Level 4.9 g/dl (3.5-5.0); Albumin/Globulin Ratio 1.6 (1.1-1.8); Globulin 3.1 g/dL (1.3-3.2); Glucose 123 mg/dl (74-100); HCG Qualitative, Serum Negative (Negative)
--- NOTE | 2023-11-07 18:03 | PC.NURSE ---
rad at bedside for cxr
--- NOTE | 2023-11-07 18:03 | PC.NURSE ---
XR AT BEDSIDE
[2023-11-07 18:15] LABS: D-Dimer 0.44 ug/mL (0.0-0.5)
[2023-11-07 18:16] LABS: Troponin I < 0.01 ng/ml (0.00-0.034)
[2023-11-07 18:18] LABS: T4 (Thyroxine) 10.9 ug/dl (5.53-11.0)
[2023-11-07 18:32] LABS: Thyroid Stimulating Hormone 1.35 uIU/mL (0.465-4.68)
[2023-11-07 19:00] VITALS: BP 131/88; PULSE 88; RESP 13; O2SAT 98
[2023-11-07 20:14] VITALS: BP 135/92; PULSE 95; RESP 16; TEMP 36.8; O2SAT 98
--- NOTE | 2023-11-07 21:57 | HMH.EDGENADL ---
Discharge Plan Disposition Patient Disposition: Home, Self-Care Condition: Good Prescriptions Prescriptions: No Action dextroamphetamine-amphetamine [Adderall XR] 20 mg capsule,extended release 24hr 20 mg PO DAILY Qty: 30 0RF Referrals Follow up/Referrals: Provider,Referral, [Primary Care Provider] - See instructions Activity Restrictions/Add. Instructions Additional Instructions/Restrictions: You were evaluated in the emergency department today. Please follow-up closely with your primary care provider. Return to the emergency department for new or worsening symptoms. Clinical Impressions Clinical Impression: Feeling jittery Instructions Patient Instructions: DI for Atypical Chest Pain Discharge ED Provider: Rachel Katz General Adult HPI General Chief complaint: Chest Pain Stated complaint: Chest Pain Time Seen by Provider: 11/07/23 17:23 Mode of Arrival: Ambulatory Source of Information: Patient Limitations: No Limitations Description of Symptoms (Recalled from ER Triage Doc. by RN): pt just has not been feeling right for a week now but has gotten worse today. pt states she feel jittery in her arm adn chest and has not taken any new meds or done anything different outside of her usual routine. History of Present Illness HPI narrative: This patient is a 28-year-old female with history of ADHD presenting to the emergency department for evaluation with concern for an unusual feeling in her chest and arms. Patient states that she feels jittery in her arms and her chest, and she does not know really how to explain it. She also states that she has had some tightness and pain at the base of her neck. No traumatic injuries noted. No fevers, chills, cough, congestion, shortness of breath, or other concerns. She denies any chest pain, she does states that it feels funny. She notes that her blood pressure has been elevated higher than usual. She states that it used to be high, but it lowered and became normal after she had lost weight. She denies any changes in medications, increased caffeine use, or other concerns. She also denies any recent stressors. Related Data Previous Rx's Medication Instructions Recorded dextroamphetamine-amphetamine ER 20 mg PO DAILY adhd #30 caps 10/22/23 20 mg 24hr capsule,extend release (Adderall XR) Allergies Allergy/AdvReac Type Severity Reaction Status Date / Time No Known Allergies Allergy Verified 10/22/23 11:38 [facility] Disclaimer: The information contained in this section may have been updated after the patient was seen, as this information can be updated by other users. Social History Smoking Status: Current every day smoker tobacco type: cigarettes packs per day: 1 second hand exposure: No alcohol intake: never substance use type: former substance user and marijuana current occupational status: unemployed Travel in the last 8 weeks: None household members: family housing: house ROS Obtained: Yes All systems reviewed & no additional complaints except as documented Physical Exam General General appearance: alert and in no apparent distress Head Head exam: atraumatic and normocephalic Eye Eye exam: Present normal appearance, PERRL and EOMI ENT ENT exam: Present normal exam, normal oropharynx, mucous membranes moist and normal external ear exam Neck Neck exam: Present normal inspection, full ROM and trachea midline; Absent tenderness Chest Chest inspection: Present normal inspection and symmetric chest wall rise; Absent tenderness Respiratory Respiratory exam: Present normal lung sounds bilaterally; Absent respiratory distress, wheezes, stridor or accessory muscle use Cardiovascular Cardiovascular exam: Present regular rate and normal rhythm Abdominal Exam Abdominal exam: Present soft; Absent distention, tenderness or guarding Extremities Exam Extremities exam: Present sloan
== END 2023-11-07 20:19 | disposition home or self-care (01) ==
PROVIDERS: Emergency Provider Emergency Medicine
DX: R45.0 Nervousness (principal); M54.2 Cervicalgia; F17.210 Nicotine dependence, cigarettes, uncomplicated
CPT/HCPCS: 71046; 72040; 80053; 84436; 84443; 84484; 84703; 85025; 85378; 93005; 99284

== ENCOUNTER 2023-11-21 07:59 | Outpatient (CLI) | payer OTHER, SELFPAY ==
--- NOTE | 2023-11-21 08:00 | CA_ITS ---
FINAL REPORT TECHNIQUE: Graded compression, spectral analysis and ultrasound images of the venous system of the upper extremity were obtained. CLINICAL HISTORY: numbness, heaviness, weakness, decreased pulses X 2 months, smoker COMPARISON: None FINDINGS: The jugular vein, subclavian vein, axillary vein, brachial vein, cephalic vein and basilic venous system are fully compressible and demonstrate no evidence of thrombosis. IMPRESSION: No evidence of thrombosis of the venous system of the left upper extremity. Reviewed, Interpreted and Dictated by Keaton Marin III, MD Transcribed by Nadine Lundberg Authenticated and . [facility]
--- NOTE | 2023-11-21 08:26 | US_ITS ---
FINAL REPORT CLINICAL HISTORY: numbness, heaviness, weakness, decreased pulses, current smoker, left arm weakness x 2 month, left arm pain post IV stick 2 weeks ago, left arm numbness. COMPARISON: none FINDINGS: UPPER ARTERIAL WRIST/BRACHIAL PRESSURE INDICES Pressure indices are as follows: RIGHT UPPER EXTREMITY: Wrist/brachial pressure index: 1.2 Comments: Normal LEFT UPPER EXTREMITY: Wrist/brachial pressure index: 1.1 Comments: Normal IMPRESSION: No evidence of significant obstructive peripheral vascular disease of the upper extremities Reviewed, Interpreted and Dictated by Keaton Marin III, MD Transcribed by Nadine Lundberg Authenticated and [facility]
--- NOTE | 2023-11-21 08:57 | US_ITS ---
PROCEDURE INFORMATION: Exam: US Left Breast, Complete Exam date and time: 11/21/2023 9:12 AM Age: 28 years old Clinical indication: Palpable Left breast mass TECHNIQUE: Imaging protocol: Complete ultrasound of all four quadrants of the left breast and the retroareolar regions, including ultrasound of the axilla when performed. COMPARISON: US BREAST LT COMPLETE 01/19/2021 10:41 AM FINDINGS: Breast: Sonographic images of the left breast including the retroareolar region, all 4 quadrants and the axilla do not demonstrate any solid or cystic masses. This is with particular attention to the 11 o'clock axis 5 cm from the nipple where the patient reports a palpable abnormality. Predominantly adipose tissue is noted. No architectural distortion or acoustical shadowing. No skin thickening or axillary adenopathy. IMPRESSION: Palpable abnormality in the left breast corresponds sonographically to predominantly adipose tissue.Further evaluation of a palpable abnormality should be based on clinical grounds regardless of radiographic findings or lack thereof. ASSESSMENT: BI-RADS Category 1: Negative
--- NOTE | 2023-11-21 10:40 | ECG_ITS ---
APPROVED REPORT Exam: Resting ECG HR:96 bpm ECG Measurements Heart Rate 96 AXES WA 142 P 52 QRSd 93 QRS 67 QT 333 T -21 QTc 387 Conclusion SINUS RHYTHM LOW QRS VOLTAGE IN PRECORDIAL LEADS [QRS DEFLECTION < 1.0 mV IN CHEST LEADS] MODERATE T-WAVE ABNORMALITY, CONSIDER ANTEROLATERAL ISCHEMIA [-0.1+ mV T-WAVE IN V3-V6] ABNORMAL ECG UNCONFIRMED REPORT Electronically signed by : Ashwin Mariscal MD 11/21/2023 20:30:17
[2023-11-21 10:46] LABS: MANUAL DIFFERENTIAL MANUAL DIFFERENTIAL (MANUAL DIFF)
[2023-11-21 11:08] LABS: Basophils # 0.1 K/mm3 (0-0.2); Eosinophils # 0.2 K/mm3 (0.0-0.4); Eosinophils % 3.1 % (0.1-12.0); Hematocrit 42.8 % (37.0-47.0); Hemoglobin 14.1 g/dL (12.2-16.2); Lymphocytes % 27.8 % (10-50); Mean Corpuscular Hemoglobin 28.2 pg (27.0-31.2); Mean Corpuscular Volume 85.5 fl (81-99); Mean Platelet Volume 7.4 fl (7.4-10.4); Monocytes # 0.3 K/mm3 (0.1-1.0); Monocytes % 4.5 % (1.7-9.3); Neutrophils # 4.6 K/mm3 (1.8-7.8); Neutrophils % 63.6 % (37.0-80.0); Platelet Count 265 K/mm3 (142-424); Red Blood Count 5.01 M/mm3 (4.20-5.40); Red Cell Distribution Width 13.6 % (11.5-17.5); White Blood Count 7.2 K/mm3 (4.8-10.8)
[2023-11-21 11:11] LABS: Monoscreen (Rapid) Negative (Negative)
[2023-11-21 11:59] LABS: Alanine Aminotransferase 24 U/L (12-78); Albumin Level 4.3 g/dl (3.5-5.0); Albumin/Globulin Ratio 1.5 (1.1-1.8); Alkaline Phosphatase 96 U/L (38-126); Anion Gap 9.6 mEq/L (5-15); Aspartate Amino Transferase 29 U/L (14-36); Bilirubin,Total 0.7 mg/dl (0.2-1.3); Blood Urea Nitrogen 11 mg/dl (7-17); Calcium 8.7 mg/dl (8.4-10.2); Carbon Dioxide 29 mmol/L (22.0-30.0); Chloride 101 mmol/L (98-107); Estimated Glomerular Filt Rate 85 ml/min (>60); GFR (African American) 103 ML/MIN (>60); Globulin 2.8 g/dL (1.3-3.2); Glucose 105 mg/dl (74-100); Potassium 3.6 mmoL/L (3.5-5.1); Sodium 136 mmol/L (136-145); Total Protein,Serum 7.1 g/dl (6.3-8.2)
[2023-11-21 12:19] LABS: Free Thyroxine Index 3.3 ug/dL (5.93-13.13); Triiodothryronine (T3) Uptake 30 % (23.5-40.5)
[2023-11-21 12:32] LABS: Thyroid Stimulating Hormone 0.99 uIU/mL (0.465-4.68)
[2023-11-21 12:48] LABS: Vitamin B12 771 pg/mL (239-931)
[2023-11-21 14:32] LABS: Eosinophils % 3 % (0-3); Lymphocytes % 33 % (10-50); Monocytes % 4 % (2-9); Neutrophils % 60 % (42-76); Total Cells Counted 100
[2023-11-21 14:33] LABS: Platelet Estimate Normal; RBC Morphology Normal
[2023-11-22 17:00] LABS: EBV Ab VCA, IgM <36.0 U/mL (0.0-35.9); EBV Nuclear Antigen Ab, IgG 80.1 U/mL (0.0-17.9)
[2023-11-23 10:45] LABS: Peripheral Smear Review Scanned Result
[2023-11-27 16:31] LABS: IgG P18 Ab. Absent (.); IgG P23 Ab. Absent (.); IgG P28 Ab. Absent (.); IgG P30 Ab. Absent (.); IgG P39 Ab. Absent (.); IgG P41 Ab. Present (.); IgG P45 Ab. Absent (.); IgG P58 Ab. Absent (.); IgG P66 Ab. Absent (.); IgG P93 Ab. Absent (.); IgM P23 Ab. Absent (.); IgM P39 Ab. Absent (.); IgM P41 Ab. Absent (.); Lyme IgG WB Interp. Negative (.); Lyme IgM WB Interp. Negative (.)
== END 2023-11-21 23:59 ==
PROVIDERS: PCP Physician Assistant; Visit Provider Physician Assistant
DX: R20.0 Anesthesia of skin; R53.1 Weakness; I10 Essential (primary) hypertension; R09.89 Other specified symptoms and signs involving the circulatory and respiratory systems; R29.898 Other symptoms and signs involving the musculoskeletal system; R53.83 Other fatigue; R61 Generalized hyperhidrosis; N63.21 Unspecified lump in the left breast, upper outer quadrant
CPT/HCPCS: 36415; 76641; 80053; 82607; 84436; 84443; 84479; 85007; 85014; 85018; 85048; 85049; 86318; 86617; 86664; 86665; 93005; 93923; 93971

== ENCOUNTER 2023-11-22 09:30 | Emergency (ER) | payer OTHER, SELFPAY ==
[2023-11-22 09:31] VITALS: BP 142/90; PULSE 101; RESP 16; TEMP 36.8; O2SAT 100; BMI 33.7
--- NOTE | 2023-11-22 09:40 | ECG_ITS ---
APPROVED REPORT Exam: Resting ECG HR:96 bpm ECG Measurements Heart Rate 96 AXES NC 148 P 52 QRSd 94 QRS 57 QT 353 T 1 QTc 406 Conclusion SINUS RHYTHM NONSPECIFIC T-WAVE ABNORMALITY BORDERLINE ECG UNCONFIRMED REPORT Electronically signed by : Ashwin Mariscal MD 11/23/2023 10:07:02
--- NOTE | 2023-11-22 10:11 | ED_ITS ---
Discharge Plan Disposition Patient Disposition: Home, Self-Care Chief Complaint: Extremity Problem,Nontraumatic Prescriptions Prescriptions: No Action nebivolol [Bystolic] 5 mg tablet 5 mg PO DAILY Qty: 30 2RF dextroamphetamine-amphetamine [Adderall XR] 20 mg capsule,extended release 24hr 20 mg PO DAILY Qty: 30 0RF Referrals Follow up/Referrals: Aliyah Bonilla PA [Primary Care Provider] - See instructions Ren Pacheco MD [Staff Physician] - See instructions Activity Restrictions/Add. Instructions Additional Instructions/Restrictions: At this time it was felt you are safe to be discharged home. If new or worsening symptoms please do not hesitate to return the emergency department. Please wear your Holter monitor for 24 hours and call and schedule an appointment with Dr. Pacheco for next week. Please continue to follow-up with your family doctor for continued evaluation and possible referral to neurology. Clinical Impressions Clinical Impression: Left leg paresthesias, Arm paresthesia, left Discharge ED Provider: Blanco Holguin General Adult HPI General Chief complaint: Extremity Problem,Nontraumatic Stated complaint: irregular ekg, left arm numbness Time Seen by Provider: 11/22/23 09:34 Mode of Arrival: Ambulatory Source of Information: Patient Limitations: No Limitations Description of Symptoms (Recalled from ER Triage Doc. by RN): c/o left arm, left leg and foot tingling, abnormal EKG at PCP office from yesterday. States she was here a few weeks ago for tingling/numbness in bilateral arms and feeling jittery like she had drank mulitple energy drinks. History of Present Illness HPI narrative: Patient is a 28-year-old female with past medical history of ADHD on dextroamphetamine who presents emergency department for tingling and numbness. Patient feels as if she has left-sided tingling and chest fluttering, she also has predominant left upper extremity left lower extremity tingling. Left lower extremity is distal to the knee. Patient does sit crisscross frequently. With regards to her upper extremity it is distal to the mid biceps, in a nondermatomal distribution. Patient denies trauma, IV drug use. She feels as if her hand becomes tense and erythematous and subsequently resolves, there is lingering associated paresthesias. No reported incontinence. Related Data Previous Rx's Medication Instructions Recorded dextroamphetamine-amphetamine ER 20 mg PO DAILY adhd #30 caps 11/12/23 20 mg 24hr capsule,extend release (Adderall XR) nebivolol 5 mg tablet (Bystolic) 5 mg PO DAILY #30 tabs 11/19/23 Allergies Allergy/AdvReac Type Severity Reaction Status Date / Time No Known Allergies Allergy Verified 11/19/23 09:58 [facility] Disclaimer: The information contained in this section may have been updated after the patient was seen, as this information can be updated by other users. Social History Smoking Status: Current every day smoker tobacco type: cigarettes packs per day: 1 second hand exposure: No alcohol intake: never substance use type: former substance user and marijuana current occupational status: unemployed Travel in the last 8 weeks: None household members: family housing: house ROS Obtained: Yes Systems reviewed as appropriate & no additional complaints except as documented Physical Exam General General appearance: alert and in no apparent distress Head Head exam: atraumatic and normocephalic Eye Eye exam: Present PERRL and EOMI ENT ENT exam: Present mucous membranes moist Neck Neck exam: Present normal inspection; Absent tenderness Chest Chest inspection: Present normal inspection and symmetric chest wall rise Respiratory Respiratory exam: Present normal lung sounds bilaterally; Absent respiratory distress Cardiovascular Cardiovascular exam: Present regular rate and normal rhythm Abdominal Exam Abdominal exam: Present soft Extremities Exam Extremities exam: Present normal inspection and other (2+ bilateral radial pulses. No erythema or asymmetric swelling) Neurological Exam Neurological exam: Present alert and CN II-XII intact; Absent motor sensory deficit Psychiatric Psychiatric exam: Present normal affect Skin Skin exam: Present warm and dry Medical Decision Making Jaspal Inquiry Pt receiving controlled substance: No Vital Signs: 11/22/23 09:31 11/22/23 10:27 11/22/23 10:37 Temperature 98.3 F Temperature Source Oral Pulse Rate 96 H 85 Pulse Rate [Left Radial] 101 H Respiratory Rate 16 18 Blood Pressure 142/85 H 128/91 H Blood Pressure [Right Arm] 142/90 H Blood Pressure Mean [Right Arm] 107 Blood Pressure Source Automatic Cuff Blood Pressure Source [Right Arm] Automatic Cuff Blood Pressure Position Sitting Blood Pressure Position [Right Arm] Sitting 02 Sat by Pulse Oximetry 100 97 97 Oxygen Delivery Method Room Air Room Air 11/22/23 11:05 Temperature Temperature Source Pulse Rate 85 Pulse Rate [Left Radial] Respiratory Rate Blood Pressure 117/87 Blood Pressure [Right Arm] Blood Pressure Mean [Right Arm] Blood Pressure Source Blood Pressure Source [Right Arm] Blood Pressure Position Blood Pressure Position [Right Arm] 02 Sat by Pulse Oximetry 100 Oxygen Delivery Method Lab Data Lab Results 11/22/23 09:50: Magnesium 2.3, Serum HCG, Qual Negative Orders (Tests/Meds): ORDERS Category Date Time Status CT head/brain wo con Stat Cat Scan 11/22/23 10:14 Completed Cardiology Consult [Consult to Cardiology] [CONS] Cons 11/22/23 10:10 Active Routine HCG Qualitative, Serum Stat Lab 11/22/23 09:50 Completed MG [Magnesium] Stat Lab 11/22/23 09:50 Completed CA echo doppler complete Stat Y 11/22/23 11:13 Completed Holter Monitor Req by Jeremiah/ Stat Y 11/22/23 12:00 Ordered ECG Data Tracing #1: Independently interpreted by me, rate is 96, rhythm is regular, axis is no rmal, no ST elevation in anatomical contiguous leads, QTc 406 Medical Decision Narrative: In summary patient is a 28-year-old female with past medical history described above who presents emergency department for evaluation of jitteriness, fluttering, paresthesias that are left extremity predominant. Patient is hemodynamically stable nontoxic-appearing upon arrival, afebrile with a nonfocal neurologic exam. Differential includes electrolyte abnormality, intracranial pathology, tacky dysrhythmia, primary peripheral neuropathy, among others. Chung tolbert does sit crisscross which may explain peroneal nerve neuropraxia however does not explain her upper extremity symptoms. Previous hematologic labs that were collected yesterday reviewed by me and are nonactionable, patient has slightly low free T4. Additional labs today will be conducted with hCG, magnesium. Given left-sided nerve distribution of symptoms noncontrasted CT scan will be conducted. The case we discussed with cardiology and they will evaluate the patient and utility of Holter monitor. Cardiology evaluate the patient, obtained echo which was reportedly normal. They recommend 24-hour Holter which will be ordered by me. Workup reviewed by me, hematologic labs are nonactionable, CT imaging shows no acute pathology. Patient will call and schedule appointment next week in their clinic and will continue to follow-up on an outpatient basis for her paresthesias. Critical Care Critical Care Time Critical Care Time: No
--- NOTE | 2023-11-22 10:14 | CT_ITS ---
FINAL REPORT CLINICAL HISTORY: L paraesthesias FINDINGS: Axial images of the head were obtained without contrast. Coronal reformatted images were also obtained.This study was performed with techniques to keep radiation doses as low as reasonably achievable (ALARA). Individualized dose reduction techniques using automated exposure control or adjustment of mA and/or kV according to the patient's size were employed. There is no evidence of intracranial hemorrhage or mass. The ventricular size is within normal limits. There is no evidence of shift of the midline structures. No abnormal extra axial fluid collection is identified. No skull abnormality is seen on the bone window images. IMPRESSION: No acute intracranial abnormality. Reviewed, Interpreted and Dictated by Keaton Marin III, MD Transcribed by Mildred Ortiz Authenticated and [facility]
[2023-11-22 10:19] LABS: Magnesium 2.3 mg/dl (1.6-2.3)
--- NOTE | 2023-11-22 10:20 | PC.NURSE ---
DR BAILEY AT BEDSIDE TO UPDATE PT
[2023-11-22 10:27] VITALS: BP 142/85; PULSE 96; O2SAT 97
[2023-11-22 10:32] LABS: HCG Qualitative, Serum Negative (Negative)
--- NOTE | 2023-11-22 10:32 | PC.NURSE ---
ATTEMPTED TO CONTACT CARDIOLOGY FOR CONSULT, NO ANSWER
--- NOTE | 2023-11-22 10:34 | PC.NURSE ---
SPOKE WITH SAMIRA KAUFFMAN. WILL ROUND ON PT AFTER SEEING CONSULTS ON MEDR. PT UPDATED
[2023-11-22 10:37] VITALS: BP 128/91; PULSE 85; RESP 18; O2SAT 97
[2023-11-22 11:05] VITALS: BP 117/87; PULSE 85; O2SAT 100
--- NOTE | 2023-11-22 11:13 | CA_ITS ---
APPROVED REPORT EXAM: Comprehensive 2D, Doppler, and color-flow Echocardiogram Bladder Cleaner: Silvia Howard RT(R) Ht: 5 ft 4 in Wt: 197lbs BSA: 1.94 BP: 142/90 mmHg Indications: abn EKG, lt parathesia, HTN, smoker, palpitations, fatigue, obesity. M-Mode Dimensions RVDd 2.63 cm (0.9-2.6) LA Diam 2.25 cm (1.9-4.0) LVDd 3.84 cm (3.5-5.7) LVDs 3.15 cm (3.5-5.7) IVSd 0.92 cm (0.6-1.1) PWd 0.82 cm (0.6-1.1) EF (Teich) 53.00% FS 26.00% EDV (Teich) 63.50 mL ESV (Teich) 39.40 mL LV Diastology E Decel Time 150 (160-240 msec) E/A Ratio 1.5 Mitral Valve MV E Max Dimitrios. 76.0 (40-130 cm/s) MV A Velocity 51.0 (40-130 cm/s) E/A Ratio 1.50 MV PHT 44.0 ms Left Ventricle The left ventricle is normal size. The left ventricular systolic function is normal. The left ventricular ejection fraction is within the normal range. There is normal left ventricular wall thickness. There is normal LV segmental wall motion. The left ventricular diastolic function is normal. LVEF is 55%. Right Ventricle The right ventricle is normal size. The right ventricular systolic function is normal. Atria The left atrium size is normal. The right atrium size is normal. There is no Doppler evidence of interatrial shunt. Aortic Valve The aortic valve opens well. There is no aortic valvular stenosis. No aortic regurgitation is present. Mitral Valve The mitral valve is normal in structure. No evidence of mitral valve stenosis. Trace mitral valve regurgitation noted. Tricuspid Valve The tricuspid valve leaflets are thin and pliable. Trace tricuspid regurgitation. There is insufficient TR jet to estimate RVSP. Pulmonic Valve The pulmonary valve is normal in structure. Trace pulmonic regurgitation. Great Vessels The aortic root is normal in size. The ascending aorta is normal in size. IVC is normal in size and collapses >50% with inspiration. Pericardium There is no pericardial effusion. Other Information Study Quality: Adequate Conclusion Normal biventricular systolic function. No significant valvular stenosis or regurgitation. Electronically signed by : Karely Mendez MD 11/22/2023 13:51:32
--- NOTE | 2023-11-22 11:13 | PC.NURSE ---
DR BAILEY SPEAKING WITH CARDIOLOGY
--- NOTE | 2023-11-22 11:15 | PC.NURSE ---
DOUGLAS MANLEY WITH CARDIOLOGY AT BEDSIDE
--- NOTE | 2023-11-22 11:29 | PC.NURSE ---
vascular at bedside for echo
--- NOTE | 2023-11-22 11:40 | EXP.CARD.CON ---
History of Present Illness History of Present Illness Consult date: 11/22/23 Requesting physician: Blanco Holguin Consult reason: chest pain Chief complaint: Palpitations, abnormal EKG Additional Medical History:: 1. History of gestational hypertension 2. Smoker in the form of vaping 3. Mother due to renal cancer 4. ADHD, with long-term use of Adderall History of present illness: 28-year-old white female seen in the emergency department today for complaint of jitteriness along with left-sided numbness tingling and intermittent left shoulder discomfort which she attributes to intermittent high blood pressure. Patient recently had an EKG in PCPs office yesterday that was different than previous EKG from last month and was instructed to come to either the ER or cardiology office. Patient did come to the ER yesterday with workup unremarkable. Patient left and returned today for same symptoms. CT of the head today unremarkable. Cardiology consulted for evaluation. EKGs reviewed by Dr. Pacheco and changes are felt to be nonspecific. EKG yesterday showed sinus rhythm with nonspecific ST-T abnormalities. Patient does vape Previous history of labetalol use for gestational hypertension Recent weight loss of about 60 pounds Nondiabetic [facility] Disclaimer: The information contained in this section may have been updated after the patient was seen, as this information can be updated by other users. Social History Smoking Status: Current every day smoker tobacco type: cigarettes packs per day: 1 second hand exposure: No alcohol intake: never substance use type: former substance user and marijuana current occupational status: unemployed Travel in the last 8 weeks: None household members: family housing: house Review of Systems Review of Systems Review of systems:: pertinent systems reviewed and negative unless documented below *Cardiovascular Cardiovascular: Denies chest pain, Denies dyspnea and Reports rapid heart rate *Respiratory Respiratory: Denies dyspnea *Musculoskeletal Musculoskeletal: Reports numbness and Reports tingling *Neurologic Neurologic: Reports numbness and Reports tingling Exam Data for Last 24 hours Vital signs and Labs for Last 24 Hours: Temp Pulse Resp BP Pulse Ox O2 Del Method 98.3 F 85 18 117/87 100 Room Air 11/22/23 09:31 11/22/23 11:05 11/22/23 10:37 11/22/23 11:05 11/22/23 11:05 11/22/23 10:37 Laboratory Results - last 24 hr 11/22/23 09:50: Magnesium 2.3, Serum HCG, Qual Negative I & O for Last 24 hours: Intake & Output 11/19/23 11/20/23 11/21/23 11/22/23 11:59 11:59 11:59 11:59 Weight 197 lb Constitutional Constitutional: no acute distress *Routine Respiratory Exam Respiratory: Present CTA bilaterally *Routine Cardiovascular Exam Cardiovascular: Present RRR; Absent murmur, gallop or rubs *Routine Extremities Exam Extremities: Absent edema *Routine Neurological Exam Neurological: Present alert, oriented X3 and CN II-XII intact Meds Home Medications and Allergies Home Medications Medication Instructions Recorded Confirmed Type dextroamphetamine-amphetamine ER 20 mg PO DAILY adhd #30 caps 11/12/23 11/19/23 Rx 20 mg 24hr capsule,extend release (Adderall XR) nebivolol 5 mg tablet (Bystolic) 5 mg PO DAILY #30 tabs 11/19/23 11/19/23 Rx New Prescriptions to Start Prescriptions: Allergies Allergy/AdvReac Type Severity Reaction Status Date / Time No Known Allergies Allergy Verified 11/19/23 09:58 Assessment and Plan *Assessment and plan (1) Feeling jittery: Status: Acute Category: Medical Code(s): R45.0 - Nervousness (2) Attention Deficit Hyperactivity Disorder (ADHD): Status: Chronic Qualifiers: Attention deficit-hyperactivity disorder type: combined inattentive-hyperactive Qualified Code(s): F90.2 - Attention-deficit hyperactivity disorder, combined type Category: Medical Code(s): F90.9 - Attention-deficit hyperactivity disorder, unspecified type (3) Elevated blood pressure reading: Status: Acute Category: Medical Code(s): R03.0 - Elevated blood-pressure reading, without diagnosis of hypertension (4) Intermittent palpitations: Status: Acute Category: Medical Code(s): R00.2 - Palpitations (5) Abnormal EKG: Status: Acute Category: Medical Code(s): R94.31 - Abnormal electrocardiogram [ECG] [EKG] Plan 1. Abnormal EKG with nonspecific ST-T abnormalities. -Obtain echocardiogram today and if normal patient could be discharged for outpatient follow-up. -24-hour Holter monitor upon discharge -Follow-up in our office in 1 week 2. Intermittent elevated blood pressure -Patient will need outpatient renal ultrasound and renal duplex due to family history of renal cancer 3. Intermittent numbness of the extremities -Recommend outpatient neuro evaluation -Recent negative left upper extremity venous and arterial study
--- NOTE | 2023-11-22 12:00 | PC.NURSE ---
Constantin called advised echo normal for pt.
--- NOTE | 2023-11-22 12:07 | PC.NURSE ---
DR BAILEY UPDATING PT AT THIS TIME
--- NOTE | 2023-11-22 12:22 | PC.NURSE ---
respiratory here to give pt halter monitor.
[2023-11-22 12:39] VITALS: BP 127/88; PULSE 87; RESP 18; TEMP 36.7; O2SAT 100
== END 2023-11-22 12:40 | disposition home or self-care (01) ==
PROVIDERS: Emergency Provider Emergency Medicine; PCP Physician Assistant
DX: R20.2 Paresthesia of skin; R20.0 Anesthesia of skin; F17.210 Nicotine dependence, cigarettes, uncomplicated; R94.01 Abnormal electroencephalogram [EEG]
CPT/HCPCS: 70450; 83735; 84703; 93005; 93225; 93306; 99285

== ENCOUNTER 2023-11-27 11:39 | Outpatient (CLI) | payer OTHER, SELFPAY | END 2023-11-27 23:59 | LOC: RT 11:40 | PROVIDERS: PCP Physician Assistant; Visit Provider Physician Assistant | DX: I47.19 Other supraventricular tachycardia (principal); R00.2 Palpitations; R94.31 Abnormal electrocardiogram [ECG] [EKG] | CPT/HCPCS: 93270 ==

== ENCOUNTER 2023-12-04 10:47 | Emergency (ER) | payer OTHER, SELFPAY ==
--- NOTE | 2023-12-04 11:46 | EXP.UTC ---
Discharge Plan Disposition Patient Disposition: Home, Self-Care Condition: Good Prescriptions Prescriptions: New amoxicillin [amoxicillin] 875 mg tablet 875 mg PO Q12H Qty: 20 0RF kzsdhvkjqpwvqcy-pztfvysur-VE [Bromfed DM] 2-30-10 mg/5 mL Syrup 5 ml PO Q6H PRN (Reason: Cough) Qty: 240 0RF methylprednisolone 4 mg Tablets,Dose Pack 4 mg PO DIRECTED 6 Days Qty: 21 0RF Rx Instructions: Take 1 pack as directed for 6 days No Action dextroamphetamine-amphetamine [Adderall XR] 20 mg capsule,extended release 24hr 20 mg PO DAILY Qty: 30 0RF Referrals Follow up/Referrals: Aliyah Bonilla PA [Primary Care Provider] - See instructions Activity Restrictions/Add. Instructions Additional Instructions/Restrictions: Drink plenty of fluids. Take tylenol or ibuprofen for pain or fever. Take the medications as directed. Follow up with your regular doctor. GO TO THE ER FOR ANY WORSENING SYMPTOMS Clinical Impressions Clinical Impression: Sinusitis, Otitis media, Acute viral syndrome Stand Alone Forms Stand Alone Forms: Work/School Release Discharge ED Provider: Miguelito Milligan [facility] [place] H[place] General Stated complaint: congestion Time Seen by Provider: 12/04/23 11:46 History of Present Illness Provider Complaint: She states that for the past 3 days she has had fever, chills, body aches, scratchy sore throat, cough and congestion. She tested positive on a home covid-19 test, but she needs a pcr test to her work. Related Data Previous Rx's Medication Instructions Recorded dextroamphetamine-amphetamine ER 20 mg PO DAILY adhd #30 caps 11/12/23 20 mg 24hr capsule,extend release (Adderall XR) amoxicillin 875 mg tablet 875 mg PO Q12H #20 tabs 12/04/23 ngjtpzbmufgehky-qesjadyugwsjias-DD 5 ml PO Q6H PRN Cough #240 mL 12/04/23 2 mg-30 mg-10 mg/5 mL oral syrup (Bromfed DM) methylprednisolone 4 mg tablets in 4 mg PO DIRECTED 6 days #21 tabs 12/04/23 a dose pack Allergies Allergy/AdvReac Type Severity Reaction Status Date / Time No Known Allergies Allergy Verified 12/04/23 13:52 [facility] Disclaimer: The information contained in this section may have been updated after the patient was seen, as this information can be updated by other users. Medical History Atrial tachycardia Social History Smoking Status: Current every day smoker tobacco type: cigarettes packs per day: 1 second hand exposure: No alcohol intake: never substance use type: former substance user and marijuana current occupational status: unemployed Travel in the last 8 weeks: None household members: family housing: house ROS Obtained: Yes All systems reviewed & no additional complaints except as documented Constitutional Constitutional: Reports chills and Reports fever(s) Eyes Eyes: Denies eye discharge ENT Ears, Nose, Mouth, and Throat: Reports as per HPI Cardiovascular Cardiovascular: Denies chest pain Respiratory Respiratory: Denies chest congestion and Reports cough Gastrointestinal Gastrointestingal: Reports nausea; Denies abdominal pain, constipation, cramping, diarrhea or vomiting Musculoskeletal Musculoskeletal: Denies arthralgias Integumentary/Breasts Skin/Breast: Denies rash Neurologic Neurologic: Denies paresthesias Physical Exam General General appearance: alert and in no apparent distress Head Head exam: atraumatic, normocephalic and normal inspection Eye Eye exam: Present normal appearance, PERRL and EOMI ENT ENT exam: Present mucous membranes moist and normal external ear exam Expanded ENT Exam TM/Canal exam: Bilateral TM: erythema and bulging Nose exam: Absent sinus tenderness Mouth exam: Present normal external inspection; Absent drooling Teeth exam: Present normal inspection Throat exam: Present tonsillar erythema, tonsillomegaly and tonsillar exudate Neck Neck exam: Present normal inspection, full ROM and trachea midline; Absent tenderness, meningismus or lymphadenopathy Chest Chest inspection: Present normal inspection and symmetric chest wall rise; Absent tenderness Respiratory Respiratory exam: Present normal lung sounds bilaterally; Absent respiratory distress, wheezes, stridor or accessory muscle use Cardiovascular Cardiovascular exam: Present regular rate and normal rhythm; Absent systolic murmur or diastolic murmur Abdominal Exam Abdominal exam: Present soft and normal bowel sounds; Absent distention, tenderness, guarding, rebound or rigidity Extremities Exam Extremities exam: Present normal inspection and normal capillary refill; Absent calf tenderness Back Exam Back exam: Present normal inspection and full ROM; Absent tenderness, CVA tenderness (R) or CVA tenderness (L) Neurological Exam Neurological exam: Present alert, oriented X3 and CN II-XII intact Psychiatric Psychiatric exam: Present normal affect and normal mood Skin Skin exam: Present warm, dry, intact and normal color Medical Decision Making Medical Records Medical records reviewed: No I reviewed the patient's medical records. Jaspal Inquiry Pt receiving controlled substance: No Lab Data Lab results reviewed: Yes I reviewed the patient's lab results.
[2023-12-04 11:50] VITALS: BP 138/94; PULSE 108; RESP 18; TEMP 37.1; O2SAT 97; BMI 33.5
[2023-12-04 12:08] LABS: UTC Strep Screen (Rapid) Negative (Negative)
[2023-12-04 12:14] LABS: Adenovirus,PCR Not Detected (NotDetected); Coronavirus 229E Not Detected (NotDetected); Coronavirus NL63 Not Detected (NotDetected); Coronavirus OC43 Not Detected (NotDetected); Coronovirus HKU1,PCR Not Detected (NotDetected); Human Metapneumovirus Not Detected (NotDetected); Influenza A, PCR Not Detected (NotDetected); Influenza AH1, 2009 Not Detected (NotDetected); Influenza AH1, PCR Not Detected (NotDetected); Influenza AH3,PCR Not Detected (NotDetected); Influenza B, PCR Not Detected (NotDetected); Parainfluenza 1, PCR Not Detected (NotDetected); Parainfluenza 2, PCR Not Detected (NotDetected); Parainfluenza 3, PCR Not Detected (NotDetected); Parainfluenza 4, PCR Not Detected (NotDetected); Respiratory Syncytial Virus Not Detected (NotDetected); Rhinovirus/Enterovirus Not Detected (NotDetected)
[2023-12-04 12:24] VITALS: BP 131/79; PULSE 70; RESP 18; TEMP 36.7; O2SAT 98
[2023-12-04 16:13] LABS: Coronavirus 19, PCR Detected (NotDetected)
== END 2023-12-04 12:24 | disposition home or self-care (01) ==
PROVIDERS: Emergency Provider Nurse Practitioner Family; PCP Physician Assistant
DX: U07.1 COVID-19 (principal); H66.93 Otitis media, unspecified, bilateral; J01.90 Acute sinusitis, unspecified; R05.9 Cough, unspecified; R50.9 Fever, unspecified; R07.0 Pain in throat; R09.81 Nasal congestion; M79.18 Myalgia, other site; F17.210 Nicotine dependence, cigarettes, uncomplicated
CPT/HCPCS: 87632; 87635; 87880; 99212; 99214; G0463

== ENCOUNTER 2023-12-10 08:21 | Outpatient (CLI) | payer OTHER, SELFPAY ==
--- NOTE | 2023-12-10 08:22 | CA_ITS ---
FINAL REPORT TECHNIQUE: Grayscale, color Doppler and duplex Doppler ultrasound of the kidneys, aorta and renal arteries was performed. Multiple velocities were measured. CLINICAL HISTORY: HTN COMPARISON: None FINDINGS: Aorta velocity: 90 cm/sec Right kidney: 9.5 cm. No evidence of hydronephrosis or mass. Right intrarenal RI: 0.7 to Right renal artery velocity: 109 cm/sec. Right RAR (Renal artery-Aortic Ratio): 1.2 Left Kidney: 11.6 cm. No evidence of hydronephrosis or mass. Left intrarenal RI: 0.76 Left renal artery velocity: 102 cm/sec. Left RAR (Renal Artery-Aortic Ratio): 1.13 IMPRESSION: No evidence of significant renal artery stenosis. CT angiogram or postcontrast MR angiogram would be more sensitive for evaluation of possible renal artery stenosis. Reviewed, Interpreted and Dictated by Saqib Mcgowan MD Transcribed by Maria Del Carmen Garcia Authenticated and [facility]
--- NOTE | 2023-12-10 09:02 | US_ITS ---
FINAL REPORT CLINICAL HISTORY: I47.19 - Other supraventricular tachycardia COMPARISON: 10/09/2021 FINDINGS: RENAL ULTRASOUND: The right kidney measures 9.5 cm in length. No evidence of hydronephrosis or mass is seen. The left kidney measures 11.6 cm in length. No evidence of hydronephrosis or mass is seen. IMPRESSION: Unremarkable renal ultrasound. Reviewed, Interpreted and Dictated by Saqib Mcgowan MD Transcribed by Maria Del Carmen Garcia Authenticated and [facility]
== END 2023-12-10 23:59 ==
LOC: RT 08:22
PROVIDERS: PCP Physician Assistant; Visit Provider Physician Assistant
DX: I10 Essential (primary) hypertension (principal); I47.19 Other supraventricular tachycardia
CPT/HCPCS: 76770; 93976

== ENCOUNTER 2024-02-10 08:59 | Emergency (ER) | payer OTHER, SELFPAY ==
[2024-02-10 09:10] VITALS: BP 146/93; PULSE 98; RESP 19; TEMP 36.7; O2SAT 98; BMI 32.5
[2024-02-10 09:40] VITALS: BP 146/93; PULSE 98; RESP 19; TEMP 36.7; O2SAT 98
--- NOTE | 2024-02-10 09:58 | EXP.UTC ---
Discharge Plan Disposition Patient Disposition: Home, Self-Care Condition: Good Prescriptions Prescriptions: No Action dextroamphetamine-amphetamine [Adderall XR] 20 mg capsule,extended release 24hr 20 mg PO DAILY Qty: 30 0RF Referrals Follow up/Referrals: Aliyah Bonilla PA [Primary Care Provider] - See instructions Activity Restrictions/Add. Instructions Additional Instructions/Restrictions: *Monitor Temp, Over the counter Motrin or Tylenol as directed/as needed Tylenol every 4 hours and Motrin every 6 hours (as long as your family doctor has told you that you can take it) for fever or pain. and straight to ER if unable to lower temp less than 101.0 after medication given *Warm salt water gargles may help to soothe the throat *Throat Lozenges? *Warm fluids like tea with honey may help to soothe the throat? *Sleep elevated *Humidifier/Vaporizer Follow up IMMEDIATELY for new or worsening symptoms or no Noticeable improvement over the next 48-72 hours. 911 for difficulty breathing or swallowing You were tested for today for Upper Respiratory Panel with COVID19 your test result should be back in the next 24hours, you may check your results on the [facility] if your COVID/Flu positive you may return to work when fever free for 24hrs without taking any medication Clinical Impressions Clinical Impression: Otitis media Stand Alone Forms Stand Alone Forms: Work/School Release Instructions Patient Instructions: Middle Ear Infection, Amoxicillin and Clavulanic Acid Discharge ED Provider: Rashida Goel [facility] General Stated complaint: sinus pressure and congestion, ear pain Mode of Arrival: Ambulatory Source of Information: Patient Limitations: No Limitations Time Seen by Provider: 02/10/24 09:58 Description of Symptoms (Recalled from Triage Doc. 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 Medical History Atrial tachycardia Social History Smoking Status: Current every day smoker tobacco type: cigarettes packs per day: 1 second hand exposure: No alcohol intake: never substance use type: former substance user and marijuana current occupational status: unemployed Travel in the last 8 weeks: None household members: family housing: house ROS Obtained: Yes All systems reviewed & no additional complaints except as documented and Yes Systems reviewed as appropriate & no additional complaints except as documented Constitutional Constitutional: Reports system reviewed and no additional complaints, except as documented, Reports as per HPI, Reports body ache, Reports fatigue and Reports headache(s) ENT Ears, Nose, Mouth, and Throat: Reports system reviewed and no additional complaints, except as documented, Reports as per HPI, Reports otalgia, Reports headache(s), Reports sinus pain and Reports sinus pressure Cardiovascular Cardiovascular: Reports system reviewed and no additional complaints, except as documented and Reports as per HPI Respiratory Respiratory: Reports system reviewed and no additional complaints, except as documented and Reports as per HPI Gastrointestinal Gastrointestingal: Reports system reviewed and no additional complaints, except as documented and as per HPI Neurologic Neurologic: Reports headache(s) Endocrine Endocrine: Reports fatigue Physical Exam General General appearance: alert and in no apparent distress ENT ENT exam: Present mucous membranes moist Expanded ENT Exam TM/Canal exam: Right TM: erythema and bulging Nose exam: Present sinus tenderness Throat exam: Present other (Pharyngeal erythema noted with PND) Respiratory Respiratory exam: Present normal lung sounds bilaterally; Absent respiratory distress or wheezes Cardiovascular Cardiovascular exam: Present regular rate, normal rhythm and normal heart sounds Abdominal Exam Abdominal exam: Present soft and normal bowel sounds; Absent distention or tenderness Neurological Exam Neurological exam: Present alert, oriented X3 and normal gait Medical Decision Making Jaspal Inquiry Pt receiving controlled substance: No Jaspal was queried for this patient: No Vital Signs: 02/10/24 09:10 02/10/24 09:40 Temperature 98.1 F 98.1 F Temperature Source Oral Pulse Rate 98 H Pulse Rate [Left Brachial] 98 H Respiratory Rate 19 19 Blood Pressure 146/93 H Blood Pressure [Left Arm] 146/93 H Blood Pressure Mean [Left Arm] 110 Blood Pressure Source [Left Arm] Automatic Cuff Blood Pressure Position [Left Arm] Sitting 02 Sat by Pulse Oximetry 98 Oxygen Delivery Method Room Air Orders (Tests/Meds): ORDERS Category Date Time Status Full Resp Panel w/COVID ([facility]) Routine Lab 02/10/24 09:22 Ordered
[2024-02-10 10:20] LABS: Adenovirus,PCR Not Detected (NotDetected); Coronavirus 19, PCR Not Detected (NotDetected); Coronavirus NL63 Not Detected (NotDetected); Coronavirus OC43 Not Detected (NotDetected); Coronovirus HKU1,PCR Not Detected (NotDetected); Human Metapneumovirus Not Detected (NotDetected); Influenza A, PCR Not Detected (NotDetected); Influenza AH1, 2009 Not Detected (NotDetected); Influenza AH1, PCR Not Detected (NotDetected); Influenza AH3,PCR Not Detected (NotDetected); Influenza B, PCR Not Detected (NotDetected); Parainfluenza 1, PCR Not Detected (NotDetected); Parainfluenza 2, PCR Not Detected (NotDetected); Parainfluenza 3, PCR Not Detected (NotDetected); Parainfluenza 4, PCR Not Detected (NotDetected); Respiratory Syncytial Virus Not Detected (NotDetected); Rhinovirus/Enterovirus Not Detected (NotDetected)
[2024-02-10 12:53] LABS: Coronavirus 229E Detected (NotDetected)
== END 2024-02-10 10:09 | disposition home or self-care (01) ==
PROVIDERS: Emergency Provider Nurse Practitioner; PCP Physician Assistant
DX: H66.91 Otitis media, unspecified, right ear (principal); B34.2 Coronavirus infection, unspecified; R51.9 Headache, unspecified; R09.81 Nasal congestion; R53.81 Other malaise; F17.210 Nicotine dependence, cigarettes, uncomplicated
CPT/HCPCS: 87632; 87635; 99212; 99214; G0463

== ENCOUNTER 2024-03-10 18:00 | Outpatient (CLI) | payer OTHER, SELFPAY ==
[2024-03-10 18:30] LABS: Basophils # 0.1 K/mm3 (0-0.2); Basophils % 0.8 % (0.1-2.0); Eosinophils # 0.3 K/mm3 (0.0-0.4); Eosinophils % 3.5 % (0.1-12.0); Lymphocytes # 2.7 K/mm3 (0.7-4.5); Lymphocytes % 31.6 % (10-50); Mean Corpuscular HGB Conc 31.8 g/dL (31.8-35.4); Mean Corpuscular Hemoglobin 28.2 pg (27.0-31.2); Mean Corpuscular Volume 88.7 fl (81-99); Mean Platelet Volume 8.3 fl (7.4-10.4); Monocytes # 0.5 K/mm3 (0.1-1.0); Monocytes % 5.2 % (1.7-9.3); Neutrophils # 5.1 K/mm3 (1.8-7.8); Platelet Count 295 K/mm3 (142-424); Red Blood Count 4.95 M/mm3 (4.20-5.40); Red Cell Distribution Width 14.1 % (11.5-17.5); White Blood Count 8.7 K/mm3 (4.8-10.8)
[2024-03-10 18:59] LABS: Alanine Aminotransferase 17 U/L (12-78); Albumin Level 4.5 g/dl (3.5-5.0); Albumin/Globulin Ratio 1.5 (1.1-1.8); Alkaline Phosphatase 105 U/L (38-126); Aspartate Amino Transferase 23 U/L (14-36); Bilirubin,Total 0.7 mg/dl (0.2-1.3); Blood Urea Nitrogen 11 mg/dl (7-17); Calcium 9.5 mg/dl (8.4-10.2); Carbon Dioxide 29 mmol/L (22.0-30.0); Chloride 104 mmol/L (98-107); Chol/HDL Ratio 4.5 (1-3.5); Cholesterol 192 mg/dl (140-200); Estimated Glomerular Filt Rate 100 ml/min (>60); GFR (African American) 121 ML/MIN (>60); Glucose 87 mg/dl (74-100); HDL Cholesterol 43 mg/dl (40-60); Sodium 141 mmol/L (136-145); Total Protein,Serum 7.5 g/dl (6.3-8.2); Triglycerides 105 mg/dl (30-150); VLDL Cholesterol 21 mg/dL (0-40)
[2024-03-10 19:07] LABS: Erythrocyte Sedimentation Rate 11 mm/hr (0-20)
[2024-03-10 19:11] LABS: C-Reactive Protein 3.3 mg/L (0-4); Direct LDL Cholesterol 109.16 mg/dL (100-129)
[2024-03-10 19:31] LABS: Thyroid Stimulating Hormone 1.27 uIU/mL (0.465-4.68)
[2024-03-10 19:50] LABS: Vitamin B12 694 pg/mL (239-931)
[2024-03-12 10:42] LABS: RA Latex Turbid. <10.0 IU/mL (<14.0)
[2024-03-12 12:12] LABS: Anti-Centromere B Antibodies <0.2 AI (0.0-0.9); Anti-DNA (DS) Ab Qn 1 IU/mL (0-9); Anti-Jo-1 <0.2 AI (0.0-0.9); Anti-Smith Antibody <0.2 AI (0.0-0.9); Antichromatin Antibodies <0.2 AI (0.0-0.9); Antiscleroderma-70 Antibodies 0.2 AI (0.0-0.9); RNP Antibodies 1.6 AI (0.0-0.9); Sjogren's Anti-SS-A <0.2 AI (0.0-0.9); Sjogren's Anti-SS-B <0.2 AI (0.0-0.9)
[2024-03-12 13:13] LABS: Anti-Cyclic Citrullinated Pept 7 units (0-19)
[2024-03-12 16:28] LABS: EBV Ab VCA, IgM <36.0 U/mL (0.0-35.9); EBV Nuclear Antigen Ab, IgG 85.6 U/mL (0.0-17.9)
== END 2024-03-10 23:59 | disposition home or self-care (01) ==
LOC: LAB.DROPOF 03-11 10:31
PROVIDERS: PCP Physician Assistant; Visit Provider Physician Assistant
DX: F90.2 Attention-deficit hyperactivity disorder, combined type (principal); M25.50 Pain in unspecified joint; R59.0 Localized enlarged lymph nodes; E55.9 Vitamin D deficiency, unspecified; M89.8X9 Other specified disorders of bone, unspecified site
CPT/HCPCS: 80053; 80061; 82306; 82607; 84443; 85025; 85651; 86140; 86200; 86225; 86235; 86431; 86664; 86665

== ENCOUNTER 2024-03-12 16:54 | Outpatient (CLI) | payer OTHER, SELFPAY ==
[2024-03-14 16:16] LABS: Lupus Reflex Interpretation Comment: (.); PTT-LA 39.1 sec (0.0-43.5); dRVVT 40.2 sec (0.0-47.0)
[2024-03-16 12:11] LABS: Anti-DNA (DS) Ab Qn 1 IU/mL (0-9); Antichromatin Antibodies <0.2 AI (0.0-0.9); RA Latex Turbid. <10.0 IU/mL (<14.0); RNP Antibodies 1.7 AI (0.0-0.9); Sjogren's Anti-SS-A <0.2 AI (0.0-0.9); Sjogren's Anti-SS-B <0.2 AI (0.0-0.9)
== END 2024-03-12 23:59 | disposition home or self-care (01) ==
LOC: LAB 16:56
PROVIDERS: PCP Physician Assistant; Visit Provider Physician Assistant
DX: M25.50 Pain in unspecified joint (principal); R76.8 Other specified abnormal immunological findings in serum
CPT/HCPCS: 36415; 85613; 86225; 86235; 86431

== ENCOUNTER 2024-04-07 09:27 | Emergency (ER) | payer OTHER, SELFPAY ==
[2024-04-07 09:35] VITALS: BP 135/88; PULSE 75; RESP 18; TEMP 36.9; O2SAT 98; BMI 34.7
--- NOTE | 2024-04-07 09:46 | EXP.UTC ---
Discharge Plan Disposition Patient Disposition: Home, Self-Care Condition: Good Prescriptions Prescriptions: New clindamycin HCl 300 mg capsule 300 mg PO Q6H 7 Days Qty: 28 0RF mupirocin 2 % ointment 1 applic topical TID 10 Days Qty: 22 0RF Rx Instructions: apply to area as directed No Action omeprazole 40 mg capsule,delayed release(DR/EC) 40 mg PO DAILY Qty: 120 4RF dextroamphetamine-amphetamine [Adderall XR] 20 mg capsule,extended release 24hr 20 mg PO DAILY Qty: 30 0RF ergocalciferol (vitamin D2) 1,250 mcg (50,000 unit) capsule 1,250 mcg PO WEEKLY Qty: 12 3RF cholecalciferol (vitamin D3) 50 mcg (2,000 unit) capsule 50 mcg PO DAILY Qty: 90 0RF Referrals Follow up/Referrals: Aliyah Bonilla PA [Primary Care Provider] - See instructions Activity Restrictions/Add. Instructions Additional Instructions/Restrictions: Take oral medication as prescribed Eat yogurt to help coat stomach Use topical medication as prescribed Follow up with your Family Doctor if needed Make sure to follow up to get your wound culture Clinical Impressions Clinical Impression: Skin problem Instructions Patient Instructions: DI for Cellulitis -- Adult, Mupirocin Discharge ED Provider: Rashida Goel [facility] General Stated complaint: right breast infected right finger pain Mode of Arrival: Ambulatory Source of Information: Patient Limitations: No Limitations Time Seen by Provider: 04/07/24 09:47 Description of Symptoms (Recalled from Triage Doc. by RN): Pt's symptoms are right nipple swollen, painful, and with discharge. Right ring finger nail is swollen and painful. HEENT Symptoms (Recalled from RN notes): No Resp Symptoms (Recalled from RN notes): No Skin Symptoms (Recalled from RN notes): Yes MS Symptoms (Recalled from RN notes): No Functional Status (Recalled from RN notes): n/a History of Present Illness Provider Complaint: Patient states that she had her nipples pierced 9mths ago and she got it caught on the shower curtain a few days ago and she noticed it was sore and having some drainage from around the bar and sore and she feels like it is infected States that she also has pain, infection around her right ring finger after she took off her fake nails Related Data Previous Rx's Medication Instructions Recorded dextroamphetamine-amphetamine ER 20 mg PO DAILY adhd #30 caps 03/10/24 20 mg 24hr capsule,extend release (Adderall XR) cholecalciferol (vitamin D3) 50 50 mcg PO DAILY #90 caps 03/18/24 mcg (2,000 unit) capsule ergocalciferol (vitamin D2) 1,250 1,250 mcg PO WEEKLY #12 caps 03/18/24 mcg (50,000 unit) capsule omeprazole 40 mg capsule,delayed 40 mg PO DAILY #120 caps 03/31/24 release clindamycin HCl 300 mg capsule 300 mg PO Q6H 7 days #28 caps 04/07/24 mupirocin 2 % topical ointment 1 applic topical TID 10 days #22 04/07/24 grams Allergies Allergy/AdvReac Type Severity Reaction Status Date / Time No Known Allergies Allergy Verified 03/31/24 13:08 Worker's Comp Is this a Worker's Comp case?: No [facility] Disclaimer: The information contained in this section may have been updated after the patient was seen, as this information can be updated by other users. Medical History (Updated 04/07/24 @ 09:55 by Rashida Goel APRN) Hypertrophy of tonsils Tympanosclerosis of both ears Tingling of face Lymphadenopathy Atrial tachycardia Social History Smoking Status: Current every day smoker tobacco type: cigarettes packs per day: 1 second hand exposure: No alcohol intake: never substance use type: former substance user and marijuana current occupational status: unemployed Travel in the last 8 weeks: None household members: family housing: house ROS Obtained: Yes All systems reviewed & no additional complaints except as documented and Yes Systems reviewed as appropriate & no additional complaints except as documented Constitutional Constitutional: Reports system reviewed and no additional complaints, except as documented and Reports as per HPI ENT Ears, Nose, Mouth, and Throat: Reports system reviewed and no additional complaints, except as documented and Reports as per HPI Cardiovascular Cardiovascular: Reports system reviewed and no additional complaints, except as documented and Reports as per HPI Respiratory Respiratory: Reports system reviewed and no additional complaints, except as documented and Reports as per HPI Musculoskeletal Musculoskeletal: Reports system reviewed and no additional complaints, except as documented and Reports as per HPI Integumentary/Breasts Skin/Breast: Reports system reviewed and no additional complaints, except as documented, Reports as per HPI and Reports other Comments: infected right breast nipple infection and infection around right ring finger nail Physical Exam General General appearance: alert and in no apparent distress ENT ENT exam: Present mucous membranes moist Expanded Chest Exam Female Torso: 1. infected nipple piercing, no redness, no swelling small amount of discharge noted culture collected and sent to lab Respiratory Respiratory exam: Present normal lung sounds bilaterally; Absent respiratory distress or wheezes Cardiovascular Cardiovascular exam: Present regular rate, normal rhythm and normal heart sounds Expanded Upper Extremity Exam Right: Hand L/R back image: 1. mild redness noted Neurological Exam Neurological exam: Present alert, oriented X3 and normal gait Medical Decision Making Jaspal Inquiry Pt receiving controlled substance: No Jaspal was queried for this patient: No Vital Signs: 04/07/24 09:35 Temperature 98.4 F Temperature Source Oral Pulse Rate [Right Radial] 75 Respiratory Rate 18 Blood Pressure [Right Arm] 135/88 Blood Pressure Mean [Right Arm] 103 Blood Pressure Source [Right Arm] Automatic Cuff Blood Pressure Position [Right Arm] Sitting 02 Sat by Pulse Oximetry 98 Oxygen Delivery Method Room Air
[2024-04-07 10:00] VITALS: BP 135/88; PULSE 75; RESP 18; TEMP 36.9; O2SAT 98
--- NOTE | 2024-04-07 11:16 | PC.NURSE ---
Sent wound culture to lab via tube system
== END 2024-04-07 10:00 | disposition home or self-care (01) ==
PROVIDERS: Emergency Provider Nurse Practitioner; PCP Physician Assistant
DX: B95.0 Streptococcus, group A, as the cause of diseases classified elsewhere (principal); N64.52 Nipple discharge; N64.4 Mastodynia; M79.644 Pain in right finger(s)
CPT/HCPCS: 87070; 87077; 87186; 87205; 99212; 99214; G0463

== ENCOUNTER 2024-05-15 15:52 | Outpatient (CLI) | payer OTHER, SELFPAY ==
[2024-05-18 14:11] LABS: Albumin 3.8 g/dL (2.9-4.4); Alpha-1-Globulin 0.3 g/dL (0.0-0.4); Alpha-2-Globulin 0.9 g/dL (0.4-1.0); Gamma Globulin 1.3 g/dL (0.4-1.8); Protein, Total 7.4 g/dL (6.0-8.5)
[2024-05-30 12:39] LABS: PDF SCANNED IMAGE
== END 2024-05-15 23:59 | disposition home or self-care (01) ==
LOC: LAB 15:56
PROVIDERS: PCP Physician Assistant; Visit Provider Nurse Practitioner
DX: R59.1 Generalized enlarged lymph nodes (principal)
CPT/HCPCS: 36415; 84155; 84165

== ENCOUNTER 2024-05-19 11:04 | Outpatient (CLI) | payer OTHER, SELFPAY ==
[2024-05-26 10:42] LABS: Miscellaneous Test SCANNED IMAGE
== END 2024-05-19 23:59 | disposition home or self-care (01) ==
LOC: LAB 11:05
PROVIDERS: PCP Physician Assistant; Visit Provider Nurse Practitioner
DX: Z02.9 Encounter for administrative examinations, unspecified (principal)

== ENCOUNTER 2024-05-22 15:49 | Outpatient (CLI) | payer OTHER, SELFPAY ==
--- NOTE | 2024-05-22 | XR_ITS ---
FINAL REPORT CLINICAL HISTORY: tight chest, cough and congestion COMPARISON: None FINDINGS: Two views of the chest were obtained. The heart size and pulmonary vascularity are within normal limits. The mediastinum is normal. No acute pulmonary abnormality is identified. There is no pneumothorax. The bony thorax is intact. IMPRESSION: No active cardiopulmonary disease. Reviewed, Interpreted and Dictated by Keaton Marin III, MD Transcribed by Maria Del Carmen Garcia Authenticated and [facility]
== END 2024-05-22 23:59 | disposition home or self-care (01) ==
LOC: RAD 15:50
PROVIDERS: PCP Physician Assistant; Visit Provider Physician Assistant
DX: R06.02 Shortness of breath (principal)
CPT/HCPCS: 71046

== ENCOUNTER 2024-07-07 08:45 | Emergency (ER) | payer OTHER, SELFPAY ==
[2024-07-07 09:35] VITALS: BP 141/76; PULSE 94; RESP 20; TEMP 36.8; O2SAT 97; BMI 34.4
--- NOTE | 2024-07-07 09:35 | ED_ITS ---
Discharge Plan Disposition Patient Disposition: Home, Self-Care Condition: Good Prescriptions Prescriptions: New amoxicillin 875 mg tablet 875 mg PO Q12H Qty: 20 0RF methylprednisolone 4 mg Tablets,Dose Pack 4 mg PO DIRECTED 6 Days Qty: 21 0RF Rx Instructions: Take 1 pack as directed for 6 days kozczyiiwzkftwi-udbhjhtoi-FW [Bromfed DM] 2-30-10 mg/5 mL Syrup 5 ml PO Q6H PRN (Reason: Cough) Qty: 240 0RF ondansetron 4 mg Tablet,Disintegrating 4 mg PO Q8H PRN (Reason: Nausea) Qty: 12 0RF No Action dextroamphetamine-amphetamine [Adderall XR] 20 mg capsule,extended release 24hr 20 mg PO DAILY Patient Comments: TAKE 1 CAPSULE BY MOUTH ONCE DAILY FOR ADHD Referrals Follow up/Referrals: Aliyah Bonilla PA [Primary Care Provider] - See instructions Activity Restrictions/Add. Instructions Additional Instructions/Restrictions: Drink plenty of fluids. Take tylenol or ibuprofen for pain or fever. Take the medications as directed. Follow up with your regular doctor. GO TO THE ER FOR ANY WORSENING SYMPTOMS Clinical Impressions Clinical Impression: Pharyngitis, Contact dermatitis, Acute viral syndrome Stand Alone Forms Stand Alone Forms: Work/School Release Instructions Patient Instructions: Sore Throat, DI for Pharyngitis/Tonsillopharyngitis -- Adult Print Language Print Language: Surinamese Discharge ED Provider: Miguelito Milligan [facility] [place] General Stated complaint: sore throat, congestion, headache Time Seen by Provider: 07/07/24 09:35 Related Data Home Medications ?Medication ?Instructions ?Recorded ?Confirmed dextroamphetamine-amphetamine ER 20 mg PO DAILY 07/07/24 07/07/24 20 mg 24hr capsule,extend release (Adderall XR) Previous Rx's ?Medication ?Instructions ?Recorded amoxicillin 875 mg tablet 875 mg PO Q12H #20 tabs 07/07/24 lwlisbjhwfmdacz-wvenivnikffuksg-AZ 5 ml PO Q6H PRN Cough #240 mL 07/07/24 2 mg-30 mg-10 mg/5 mL oral syrup (Bromfed DM) methylprednisolone 4 mg tablets in 4 mg PO DIRECTED 6 days #21 tabs 07/07/24 a dose pack ondansetron 4 mg disintegrating 4 mg PO Q8H PRN Nausea #12 tabs 07/07/24 tablet Allergies Allergy/AdvReac Type Severity Reaction Status Date / Time No Known Allergies Allergy Verified 05/26/24 16:13 [facility] Disclaimer: The information contained in this section may have been updated after the patient was seen, as this information can be updated by other users. Medical History (Updated 07/07/24 @ 10:04 by Miguelito Milligan APRN) ADHD Hypertrophy of tonsils Tympanosclerosis of both ears Tingling of face Lymphadenopathy Atrial tachycardia Social History Smoking Status: Current every day smoker tobacco type: cigarettes packs per day: 1 second hand exposure: No alcohol intake: never substance use type: former substance user and marijuana current occupational status: unemployed Travel in the last 8 weeks: None household members: family housing: house ROS Obtained: Yes All systems reviewed & no additional complaints except as documented Constitutional Constitutional: Reports chills and Reports fever(s) Eyes Eyes: Denies eye discharge ENT Ears, Nose, Mouth, and Throat: Reports as per HPI Cardiovascular Cardiovascular: Denies chest pain Respiratory Respiratory: Denies chest congestion and Reports cough Gastrointestinal Gastrointestingal: Reports nausea; Denies abdominal pain, constipation, cramping, diarrhea or vomiting Musculoskeletal Musculoskeletal: Denies arthralgias Integumentary/Breasts Skin/Breast: Denies rash Neurologic Neurologic: Denies paresthesias Physical Exam General General appearance: alert and in no apparent distress Head Head exam: atraumatic, normocephalic and normal inspection Eye Eye exam: Present normal appearance, PERRL and EOMI ENT ENT exam: Present mucous membranes moist and normal external ear exam Expanded ENT Exam TM/Canal exam: Bilateral TM: erythema and bulging Nose exam: Absent sinus tenderness Mouth exam: Present normal external inspection; Absent drooling Teeth exam: Present normal inspection Throat exam: Present tonsillar erythema, tonsillomegaly and tonsillar exudate Neck Neck exam: Present normal inspection, full ROM and trachea midline; Absent tenderness, meningismus or lymphadenopathy Chest Chest inspection: Present normal inspection and symmetric chest wall rise; Absent tenderness Respiratory Respiratory exam: Present normal lung sounds bilaterally; Absent respiratory distress, wheezes, stridor or accessory muscle use Cardiovascular Cardiovascular exam: Present regular rate and normal rhythm; Absent systolic murmur or diastolic murmur Abdominal Exam Abdominal exam: Present soft and normal bowel sounds; Absent distention, tenderness, guarding, rebound or rigidity Extremities Exam Extremities exam: Present normal inspection and normal capillary refill; Absent calf tenderness Back Exam Back exam: Present normal inspection and full ROM; Absent tenderness, CVA tenderness (R) or CVA tenderness (L) Neurological Exam Neurological exam: Present alert, oriented X3 and CN II-XII intact Psychiatric Psychiatric exam: Present normal affect and normal mood Skin Skin exam: Present warm, dry, intact and normal color Medical Decision Making Medical Records Medical records reviewed: No I reviewed the patient's medical records. Jaspal Inquiry Pt receiving controlled substance: No Lab Data Lab results reviewed: Yes I reviewed the patient's lab results.
[2024-07-07 09:47] LABS: UTC Strep Screen (Rapid) Negative (Negative)
[2024-07-07 10:12] VITALS: BP 141/76; PULSE 94; RESP 20; TEMP 36.8; O2SAT 97
== END 2024-07-07 10:17 | disposition home or self-care (01) ==
PROVIDERS: Emergency Provider Nurse Practitioner Family; PCP Physician Assistant
DX: U07.1 COVID-19 (principal); J02.9 Acute pharyngitis, unspecified; R51.9 Headache, unspecified
CPT/HCPCS: 87635; 87880; 99212; 99214; G0463

== ENCOUNTER 2025-07-23 12:36 | Outpatient (CLI) | payer OTHER, SELFPAY ==
--- OUTSIDE RECORDS SUMMARY | 2025-07-23 12:39 | XMS_ITS | Encounter Summary ---
Author Organization Healthcare Address [address] [place] [address] Care Team Providers Care Wire Mill Operator Name Role Phone Aliyah Bonilla Primary Care Provider [phone] Encounter Details Date Type Department Care Team (Late st Contact Info) Description 05/20/2025 Orders Only [facility] Medicine Specialties [address] [place] [address] Guido Wilder, WEB OFFSET PRESS FEEDER [address] [place] [address] Social History Tobacco Use Types Packs/Day Years Used Date Smoking Tobacco: Former Cigarettes Smokeless Tobacco: Never Alcohol Use Standard Drinks/Week Comments Yes 0 (1 standard drink = 0.6 oz pur e alcohol) social PHQ-2 Answer Date Recorded Patient Health Questionnaire-2 Score 0 01/13/2025 Comments Unknown Sex and Gender Information Value Date Recorded Sex Assigned at Not on file Legal Sex Female 7:36 PM EDT Gender Identity Female 10/01/2022 5:20 PM EST Sexual Orientation Straight 10/01/2022 5: 20 PM EST documented as of this encounter Plan of Treatment Not on file documented as of this encounter Visit Diagnoses Not on filedocumented in this encounter Additional Health Concerns Assessment Noted Time A fall risk assessment has been complete d for the patient 01/13/2025 10:58 AM EST A Body Mass Index follow-up plan has been documented for the patient 01/13/2025 11:48 AM EST documented as of this encounter Care Teams Wire Mill Operator Relationship Specialty Start Date End Date Aliyah Bonilla PA [address] [place] [address] PCP - General 09/26/22 documented as of this encounter
--- OUTSIDE RECORDS SUMMARY | 2025-07-23 12:39 | XMS_ITS | Clinical Summary ---
Author Organization [facility] Address [address] [place] [address] Care Team Providers Care Employee Relations Manager Name Role Phone Provider, No Known Primary Care Provider Unavail able Allergies No known active allergies Medications ondansetron ODT (ZOFRAN-ODT) 4 MG disintegrating tablet Take 4 mg by mouth Every 6 (Six) Hours As Needed. 9 Active Vit-Fe Fumarate-FA ( ) 27-1 MG tablet tablet Take by mouth Daily. 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 Not on file 10/2023 Does Anyone Keep You from Co ntacting Others or Doint Things Outside the Home? Not on file 08/29/2023 Physical Sign of Abuse Present Not on file 1 Housing Stability Answer Date Recorded Current Living Arrangements Not on file 08/18 Potentially Unsafe Housing Conditions Not on zane e 08/29/2023 Family and Community Support Answer Jorge Luis e Recorded Help with Day-to-Day Activities Not on file 08/29/2023 Lonely or Isolated Not on file 08/29/2023 Employment Answer Date Recorded Do you want help finding or keeping work or a kanwal b? Not on file 08/29/2023 Disabilities Answer Date Recorded Concentrating, Remembering, or Making Decisions Difficulty Not on file 08/29/2023 Doing Errands Independently Difficulty Not on fi le 08/29/2023 Education Answer Date Recorded Help with school or training? Not on file Preferred Language Not on file 08/29/2023 Comments No Sex and Gender Information Value Date Recorded Sex Assigned at Not on file Legal Sex Female 3:10 PM EST Gender Identity Not on file Sexual Orientation Not on file Last Filed Vital Signs Vital Sign Reading Time Taken Comments Blood Pressure 141/72 12/01/2019 9:40 AM EST Pulse - - Temperature - - Respiratory Rate - - Oxygen Saturation - - Inhaled Oxygen Concentration - - Weight 93.9 kg (207 lb) 12/01/2019 9:40 AM EST Height 160 cm (5' 3 ) 12/01/2019 9:45 AM EST Body Mass Index 36.67 12/01/2019 9:40 AM EST Plan of Treatment Health Maintenance Due Date Last Done Comments Annual Gynecologic Pelvic an d Breast Exam 1995 TDAP/TD VACCINES (1 - Tdap) 2014 ANNUAL PHYSICAL 12/01/2019 HEPATITIS C SCREENING 12/01/2019 COVID-19 Vaccine (2023-2 5 season) 2024 INFLUENZA VACCINE 08/18/2025 Pneumococcal Vaccine 0-49 Aged Out No longer eligible based on patient's age to complete this topic Insurance Care Teams Employee Relations Manager Relationship Specialty Start Date End Date Provider, No Known [facility] [place] [address] PCP - General 11/24/19
--- OUTSIDE RECORDS SUMMARY | 2025-07-23 12:39 | XMS_ITS | Clinical Summary ---
Author Organization [facility] Address [address] [place] [address] Care Team Providers Care Nursery Teacher Name Role Phone Aliyah Bonilla Primary Care Provider [phone] Allergies No known active allergies Medications Adderall XR 20 MG 24 hr capsule Take 1 capsule (20 mg) by mouth daily. 2 Active methotrexate 2.5 MG tablet Follow directions carefully, and ask to explain any part you do not understand. Take exactly as directed. Take 6 tabs one day once a week (at one time). 29 tablet 5 Active Encounters Date Type Department Care Team Description 05/20/2025 Orders Only [facility] Medicine Specialties [address] [place] [id number] Guido Wilder, SLIP BRIDGE OPERATOR Tinnitus of both ears (Primary Dx) 05/20/2025 Orders Only [facility] Medicine Specialties [address] [place] [id number] Guido Wilder, SLIP BRIDGE OPERATOR from Last 3 Months Immunizations Immunization Administration Dates Next Due Hep B, Adolescent or Pediatric 06/08/1996 Social History Tobacco Use Types Packs/Day Years Used Date Smoking Tobacco: Former Cigarettes Smokeless Tobacco: Never Tobacco Cessation:Counseling Given: Not Answered Alcohol Use Standard Drinks/Week Comments Yes 0 (1 standard drink = 0.6 oz pur e alcohol) social PHQ-2 Answer Date Recorded Patient Health Questionnaire-2 Score 0 01/13/2025 Comments Unknown Sex and Gender Information Value Date Recorded Sex Assigned at Not on file Legal Sex Female 7:36 PM EDT Gender Identity Female 10/01/2022 5:20 PM EST Sexual Orientation Straight 10/01/2022 5: 20 PM EST Last Filed Vital Signs Vital Sign Reading Time Taken Comments Blood Pressure 134/85 01/13/2025 10:54 AM EST Pulse 78 01/13/2025 10:54 AM EST Temperature 36.6 C (97.8 F) 01/13/2025 10:54 AM EST Respiratory Rate 16 01/13/2025 10:5 4 AM EST Oxygen Saturation 98% 01/13/2025 10: 54 AM EST Inhaled Oxygen Concentration - - Weight 96.5 kg (212 lb 11.9 oz) 025 10:54 AM EST Height 162.6 cm (5' 4 ) 01/13/2025 10:5 4 AM EST Body Mass Index 36.52 01/13/2025 10:54 AM EST Plan of Treatment Health Maintenance Due Date Last Done Comments [facility]-HIV Screening 1995 [facility]-Infant/Child/Adol SDOH Screenings 1995 [facility]-Hepatitis B Vaccines (2 of 3 - 3-dose series) 07/06/1996 06/08/1996 [id number] Vaccine (#1) 2000 [facility]-Varicella Vaccines (1 of 2 - 13+ 2-dose series) 2008 [facility]- SDOH Screenings 2013 [facility]-Adult SDOH Screenings 2013 [facility]-DTaP,Tdap,and Td Vaccines (1 - Tdap) 2014 [facility]-Zoster Vaccines (1 of 2) 2014 [facility]-Pap Smear 2016 HPV Vaccines (1 - 3-dose SCDM series) 2022 [facility]-Cervical Cancer Screening 2025 [facility]-HPV/Cotest 2025 [facility]-Influenza Vaccine (#1) 2025 [facility]-Depression Screening 01/13/2026 01/13/2025 [facility]-Hepatitis C Screening Completed 05/05/2024 [facility]-Obesity Intervention Completed 025, 07/07/2024, 05/05/2024, Additional history exists [facility]-HIB Vaccines Aged Out No longer e ligible based on patient's age to complete this topic [facility]-Hepatitis A Vaccines Aged Out No longer eligible based on patient's age to complete this topic [facility]-IPV Vaccines Aged Out No longer e ligible based on patient's age to complete this topic [facility]-Pneumococcal Vaccine: Pediatrics (0 to 5 Years) and At-Risk Patients (6 to 49 Years) Aged Out No longer eligible based on patient's age to complete this topic [facility]-Rotavirus Vaccines Aged Out No lo nger eligible based on patient's age to complete this topic Procedures Procedure Name Priority Date/Time Associated Diagnosis Comments ACUTE HEPATITIS PANEL Routine 05/05/2024 9:07 AM EDT [facility] positive Inflammatory polyarthritis (CMS/HCC) from Last 3 Months or Most Recently Relevant to Health Maintenance Results * Acute Hepatitis Panel (05/05/2024 9:07 AM EDT) Hepatitis B Surf Antigen Negative Negative 05/05/2024 11:18 AM EDT [facility] Hepatitis C Antibody Negative Negative 05/05/2024 11:18 AM EDT [facility] Hepatitis A Antibody IgM Negative Negative 05/05/2024 11:18 AM EDT [facility] Hepatitis B Core Antibody IgM Negative Negative 05/05/2024 11:18 AM EDT [facility] Blood Venous blood specimen / Unknown Venipuncture / Unknown 05/05/2024 9:07 AM EDT 05/05/2024 9:07 AM EDT Guido Wilder APRN LAB BLOOD ORDERABLES Final Res ult [facility] [address] [place] [address] from Last 3 Months or Most Recently Relevant to Health Maintenance Insurance [employer] [facility] MEDICAID Care Teams Nursery Teacher Relationship Specialty Start Date End Date Aliyah Bonilla PA [address] [place] [address] PCP - General 09/26/22
--- NOTE | 2025-07-23 12:40 | US_ITS ---
PROCEDURE INFORMATION: Exam: US Left Breast, Complete MG Bilateral Diagnostic Breast Tomosynthesis Exam date and time: 07/23/2025 1:02 PM Age: 30 years old Clinical indication: Left breast pain . Palpable abnormality in the left axilla TECHNIQUE: Imaging protocol: Complete ultrasound of all four quadrants of the left breast and the retroareolar regions, including ultrasound of the axilla when performed. Bilateral Diagnostic tomosynthesis and 2D mammography including computer-aided detection (CAD) when performed. Unilateral or bilateral exam. COMPARISON: US BREAST LT COMPLETE 11/21/2023 9:12 AM FINDINGS: MAMMOGRAPHY: Breast composition: There are scattered areas of fibroglandular density. Breast mammogram findings: There is no stellate mass, architectural distortion or suspicious microcalcifications in either breast to suggest malignancy. No skin thickening or axillary adenopathy. ULTRASOUND: Breast ultrasound findings: Sonographic images of the left breast including the retroareolar region, all 4 quadrants and the axilla do not demonstrate any solid or cystic masses. No architectural distortion or acoustical shadowing. No skin thickening or axillary adenopathy. No suspicious findings in the left axilla where the patient reports a palpable abnormality. IMPRESSION: Palpable abnormality in the left axilla corresponds both mammographically and sonographically to normal anatomic structures. There is no mammographic evidence of malignancy. Further evaluation of a palpable abnormality should be based on clinical grounds regardless of radiographic findings or lack thereof. Annual bilateral mammographic screening is recommended to commence at the age of 40 unless otherwise clinically indicated. ASSESSMENT: BI-RADS Category 1: Negative.
== END 2025-07-23 23:59 | disposition home or self-care (01) ==
LOC: RAD 12:37
PROVIDERS: PCP Physician Assistant; Visit Provider Physician Assistant
DX: N64.4 Mastodynia (principal); R59.0 Localized enlarged lymph nodes; R92.322 Mammographic fibroglandular density, left breast
CPT/HCPCS: 76641; 77062; 77066; G0279

== ENCOUNTER 2025-10-24 16:11 | Outpatient (CLI) | payer OTHER, SELFPAY ==
[2025-10-24 21:00] LABS: Coronavirus 19, PCR Not Detected (NotDetected); Influenza A, PCR Not Detected (NotDetected); Influenza B, PCR Not Detected (NotDetected)
== END 2025-10-24 23:59 | disposition home or self-care (01) ==
LOC: LAB.DROPOF 10-25 11:13
PROVIDERS: PCP Physician Assistant; Visit Provider Nurse Practitioner
DX: J02.9 Acute pharyngitis, unspecified (principal)
CPT/HCPCS: 87631